=== PATIENT | female | born 1985 | race Caucasian/White ===

== ENCOUNTER 2017-06-30 09:48 | Emergency (ER) | payer SELFPAY ==
--- NOTE | 2017-06-30 10:24 | EDM.PDOC ---
ED HPI GENERAL MEDICAL PROBLEM - General Chief Complaint: General Stated Complaint: oral pain Time Seen by Provider: 06/30/17 10:17 Source of Information: Reports: Patient History Limitations: Reports: No Limitations - History of Present Illness INITIAL COMMENTS - FREE TEXT/NARRATIVE: History of present illness: [31-year-old female comes in complaining of dental pain. Patient has swelling to the right lower gum and indicates that this is new but has evolved rapidly.] Review of systems: As per history of present illness and below otherwise all systems reviewed and negative. Past medical history: As per history of present illness and as reviewed below otherwise noncontributory. Surgical history: As per history of present illness and as reviewed below otherwise noncontributory. Social history: No reported history of drug or alcohol abuse. Family history: As per history of present illness and as reviewed below otherwise noncontributory. Physical exam: HEENT: Atraumatic, normocephalic, pupils reactive, negative for conjunctival pallor or scleral icterus, mucous membranes moist, throat clear, neck supple, nontender, trachea midline. Lungs: Clear to auscultation, breath sounds equal bilaterally, chest nontender. Heart: S1S2, regular, negative for clicks, rubs, or JVD. Abdomen: Soft, nondistended, nontender. Negative for masses or hepatosplenomegaly. Negative for costovertebral tenderness. Pelvis: Stable nontender. Genitourinary: Deferred. Rectal: Deferred. Extremities: Atraumatic, negative for cords or calf pain. Neurovascular unremarkable. Neuro: Awake, alert, oriented. Cranial nerves II through XII unremarkable. Cerebellum unremarkable. Motor and sensory unremarkable throughout. Exam nonfocal. Dental pain: Right lower gum line that is red swollen and tender to the touch. Erythema in the right lower jaw external swelling up towards the right eye. Diagnostics: [] Therapeutics: [Toradol 60 mg IM] Impression: [Dental pain] Plan: [Dental balls, antibiotics] Definitive disposition and diagnosis as appropriate pending reevaluation and review of above. Right Dental Pain Score (Numeric/FACES): 9 - Related Data Allergies Allergy/AdvReac Type Severity Reaction Status Date / Time ketorolac tromethamine Allergy Severe Facial Verified 06/30/17 09:52 [From Toradol] Swelling tramadol Allergy Severe Facial Verified 06/30/17 09:52 Swelling Home Meds: Home Meds Doxylamine Succinate [Unisom Sleep Aid] 25 mg PO BEDTIME PRN 09/20/14 [History] PNV95/Ferrous Fumarate/FA [ Multivitamins] 1 tab PO DAILY 09/27/14 [ History] Docusate Sodium [Colace] 100 mg PO BID PRN #0 cap 05/21/15 [Rx] Past Medical History - Past Health History Medical/Surgical History: Denies Medical/Surgical History Psychiatric History: Reports: Addiction Other Psychiatric History: 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 Other Hematologic History: Hep C positive. Social & Family History - Family History Family Medical History: Noncontributory - Tobacco Use Smoking Status *Q: Never Smoker Used Tobacco, but Quit: Yes Month Tobacco Last Used: 4 years Second Hand Smoke Exposure: No - Alcohol Use Days Per Week of Alcohol Use: 0 - Recreational Drug Use Recreational Drug Use: No Drug Use in Last 12 Months: No Recreational Drug Type: Reports: Methamphetamine ED ROS GENERAL - Review of Systems Review Of Systems: See Below (See history of present illness) ED EXAM, GENERAL - Physical Exam Exam: See Below (History of present illness) Course - Vital Signs Last Recorded V/S: Last Vital Signs Temp 36.8 C 06/30/17 09:53 Pulse 88 06/30/17 09:53 Resp 18 06/30/17 09:53 BP 113/58 L 06/30/17 09:53 Pulse Ox 97 06/30/17 09:53 Departure - Departure Time of Disposition: 10:24 Disposition: Home, Self-Care 01 Condition: Good Clinical Impression: Pain, dental - Discharge Information Referrals: PCP,None [Primary Care Provider] - Additional Instructions: The following information is given to patients seen in the emergency department who are being discharged to home. This information is to outline your options for follow-up care. We provide all patients seen in our emergency department with a follow-up referral. The need for follow-up, as well as the timing and circumstances, are variable depending upon the specifics of your emergency department visit. If you don't have a primary care physician on staff, we will provide you with a referral. We always advise you to contact your personal physician following an emergency department visit to inform them of the circumstance of the visit and for follow-up with them and/or the need for any referrals to a consulting specialist. The emergency department will also refer you to a specialist when appropriate. This referral assures that you have the opportunity for follow-up care with a specialist. All of these measure are taken in an effort to provide you with optimal care, which includes your follow-up. Under all circumstances we always encourage you to contact your private physician who remains a resource for coordinating your care. When calling for follow-up care, please make the office aware that this follow-up is from your recent emergency room visit. If for any reason you are refused follow-up, please contact the [facility] Emergency Department at and asked to speak to the emergency department charge nurse. Take medication as directed Follow-up with the dentist as discussed Return to ED as needed as discussed
[2017-06-30] MEDS ORDERED: Lidocaine 2% Viscous Solution 15 ML Cup PO ONE (10:27)
[2017-06-30] MEDS ORDERED: Benzocaine 20% Topical Spray UD MUCMEM ONE (10:27)
[2017-06-30 10:49] VITALS: BP 112/56
== END 2017-06-30 10:54 | disposition home or self-care (01) ==
LOC: MW.ED 09:48
DX: K08.89 Other specified disorders of teeth and supporting structures (principal); Z88.6 Allergy status to analgesic agent; Z88.5 Allergy status to narcotic agent
CPT/HCPCS: 99282; A9270

== ENCOUNTER 2017-09-26 20:03 | Inpatient (IN) | payer MEDICAID ==
[2017-09-26] MEDS ORDERED: Lactated Ringers 1,000 ML IV ONE ×2 (20:38→22:07)
[2017-09-26] MEDS ORDERED: Ibuprofen 800 MG Tab PO ONE (20:55)
[2017-09-26] MEDS ORDERED: Ondansetron 4 MG/2 ML SDV IVPUSH ONE (20:57)
[2017-09-26 21:23] LABS: CHLORIDE,CL 99 mmol/L (98-107); SODIUM,NA 135 mmol/L (136-145)
--- NOTE | 2017-09-26 21:43 | EDM.PDOC ---
<Sylvia Shoemaker - Last Filed: 09/26/17 22:18> ED HPI GENERAL MEDICAL PROBLEM - General Chief Complaint: General Stated Complaint: PT HAS LUMP ON RT ARM Time Seen by Provider: 09/26/17 20:10 Source of Information: Reports: Patient History Limitations: Reports: No Limitations - History of Present Illness INITIAL COMMENTS - FREE TEXT/NARRATIVE: HISTORY AND PHYSICAL: History of present illness: [Patient comes to the emergency room complaining of pain, warmth, redness to her right forearm. She states that on September 23 she developed a migraine headache. One of her friends is a nursing care partner and offered to give her a liter of IV fluids and pain medication rather than the patient going to the emergency room because she doesn't have insurance. The patient went to her friend's house and had an IV started in her right forearm. Patient states that it took multiple attempts to both hands and arms to get an IV started. She complained of a burning sensation when normal saline was being infused. States that she was given one tablet of Benadryl and oxycodone from her friend. She is also experiencing pain in her chest primarily between her breasts which is also in her back. She describes the pain as a sharp shooting pain and it is much worse with taking a deep breath. Next day she noticed some redness and hardness to the area where she had the IV which has gradually worsened over the past 4 days. She's developed fever up to 104, generalized malaise, pain in her chest with taking a breath, back pain, nausea, increased pain to her right forearm with red streaks up her arm. She has not had any vomiting, constipation or diarrhea. Is R hand dominant. Cannot remember when her last tetanus was. She denies any history of methamphetamine or IV drug use. Denies history of hepatitis C and HIV.] Review of systems: As per history of present illness and below otherwise all systems reviewed and negative. Past medical history: As per history of present illness and as reviewed below otherwise noncontributory. Surgical history: As per history of present illness and as reviewed below otherwise noncontributory. Social history: No reported history of drug or alcohol abuse. Family history: As per history of present illness and as reviewed below otherwise noncontributory. Physical exam: Gen.: Well-developed well-nourished female in no acute distres She is tearful at times, liaison exam table without difficulty.. HEENT: Atraumatic, normocephalic oral mucous membranes are dry. Throat is clear. Neck supple, and without lymphadenopathy. Lungs: Clear to auscultation, breath sounds equal bilaterally. Heart: [id number] is regular, rate is 110. Abdomen: bowel sounds are normoactive throughout. Abdomen is soft nondistended , nontender, no masses guarding or rebound. Pelvis: Stable nontender. Genitourinary: Deferred. Rectal: Deferred. Extremities: Abscess to R medial proximal forearm, with 3cm x 3cm induration. Erythematous streaking exstends to entire upper arm. Skin is warm and erythematous. Numerous scabs and bruises to both forearms and AC joints. Neurovascular unremarkable. Neuro: Awake, alert, oriented. Motor and sensory unremarkable throughout. Exam nonfocal. Diagnostics: [CBC, CMP, urinalysis, urine , lactate, d-dimer, right forearm x-ray, chest CT for PE] Therapeutics: [1 liter LR, Vancomycin 1 gram IV] Impression: [] Plan: [] Definitive disposition and diagnosis as appropriate pending reevaluation and review of above. Headache Pain Score (Numeric/FACES): 6 - Related Data Allergies Allergy/AdvReac Type Severity Reaction Status Date / Time ketorolac tromethamine Allergy Severe Facial Verified 09/26/17 20:22 [From Toradol] Swelling tramadol Allergy Severe Facial Verified 09/26/17 20:22 Swelling Home Meds: Home Meds . 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 Other Hematologic History: Hep C positive. Social & Family History - Family History Family Medical History: Noncontributory - Tobacco Use Smoking Status *Q: Never Smoker Used Tobacco, but Quit: Yes Month/Year Tobacco Last Used: 4 years Second Hand Smoke Exposure: No - Caffeine Use Caffeine Use: Reports: None - Alcohol Use Days Per Week of Alcohol Use: 0 - Recreational Drug Use Recreational Drug Use: No Drug Use in Last 12 Months: No Recreational Drug Type: Reports: Methamphetamine ED ROS GENERAL - Review of Systems Review Of Systems: ROS reveals no pertinent complaints other than HPI. ED EXAM, GENERAL - Physical Exam Exam: See Below Course - Vital Signs Last Recorded V/S: Last Vital Signs Temp 38.2 C H 09/26/17 22:58 Pulse 121 H 09/26/17 22:58 Resp 19 09/26/17 22:58 BP 99/67 09/26/17 22:58 Pulse Ox 99 09/26/17 22:58 - Orders/Labs/Meds Orders: Active Orders 24 hr Category Date Time Status Patient Status [ADT] Stat ADT 09/26/17 22:30 Active EKG Documentation Completion [RC] STAT Care 09/26/17 20:36 Active Vaccines to be Administered [RC] PER UNIT ROUTINE Care 09/26/17 22:17 Active CTA Chest W WO Contrast [Ang Chest] [CT] Stat Exams 09/26/17 21:33 Taken Forearm 2V Rt [CR] Stat Exams 09/26/17 20:50 Taken CULTURE BLOOD [BC] Stat Lab 09/26/17 20:50 Received CULTURE BLOOD [BC] Stat Lab 09/26/17 21:00 Received DRUG SCREEN, URINE [URCHEM] Stat Lab 09/26/17 20:55 Ordered HCG QUALITATIVE,URINE [URCHEM] Stat Lab 09/26/17 20:55 Ordered UA W/MICROSCOPIC [URIN] Stat Lab 09/26/17 20:38 Ordered Levofloxacin/Dextrose 5%-Water [Levaquin in D5W 500 MG/ Med 09/26/17 23:16 Ordered 100 ML] 500 mg Premix Bag 1 bag IV ONETIME Sodium Chloride 0.9% [Normal Saline] 1,000 ml Med 09/26/17 22:39 Active IV STAT Blood Culture x2 Reflex Set [OM.PC] Stat Oth 09/26/17 20:36 Ordered Medication Orders Sodium Chloride (Normal Saline) 1,000 mls @ 999 mls/hr IV STAT ONE Stop: 09/26/17 23:39 Labs: Laboratory Tests 09/26/17 09/26/17 09/26/17 Range/Units 20:38 20:50 20:50 WBC 11.58 H (4.0-11.0) K/uL RBC 4.61 (4.30-5.90) M/uL Hgb 12.9 (12.0-16.0) g/dL Hct 37.4 (36.0-46.0) % MCV 81.1 (80.0-98.0) fL MCH 28.0 (27.0-32.0) pg MCHC 34.5 (31.0-37.0) g/dL RDW Std Deviation 41.3 (28.0-62.0) fl RDW Coeff of Yue 14 (11.0-15.0) % Plt Count 171 (150-400) K/uL MPV 11.30 (7.40-12.00) fL Neut % (Auto) 82.8 H (48.0-80.0) % Lymph % (Auto) 9.2 L (16.0-40.0) % [place] % (Auto) 7.5 (0.0-15.0) % Eos % (Auto) 0.4 (0.0-7.0) % Baso % (Auto) 0.1 (0.0-1.5) % Neut # (Auto) 9.6 H (1.4-5.7) K/uL Lymph # (Auto) 1.1 (0.6-2.4) K/uL [place] # (Auto) 0.9 H (0.0-0.8) K/uL Eos # (Auto) 0.1 (0.0-0.7) K/uL Baso # (Auto) 0.0 (0.0-0.1) K/uL Nucleated RBC % 0.0 /100WBC Nucleated RBCs # 0 K/uL D-Dimer, Quantitative 2.20 H (0.0-0.52) mg/LFEU Lactate (0.20-2.00) mmol/L Sodium (136-145) mmol/L Potassium (3.5-5.1) mmol/L Chloride (98-107) mmol/L Carbon Dioxide (21.0-32.0) mmol/L BUN (7.0-18.0) mg/dL Creatinine (0.6-1.0) mg/dL Est Cr Clr Drug Dosing mL/min Estimated GFR (MDRD) ml/min Glucose (74-106) mg/dL Calcium (8.5-10.1) mg/dL Total Bilirubin (0.2-1.0) mg/dL AST (15-37) IU/L ALT (14-63) IU/L Alkaline Phosphatase (46-116) U/L Total Protein (6.4-8.2) g/dL Albumin (3.4-5.0) g/dL Globulin (2.0-3.5) g/dL Albumin/Globulin Ratio (1.3-2.8) Urine Color YELLOW Urine Appearance SLT CLOUDY Urine pH 7.0 (5.0-8.0) Ur Specific [place] 1.020 (1.001-1.035) Urine Protein 100 (NEGATIVE) mg/dL Urine Glucose (UA) NEGATIVE (NEGATIVE) mg/dL Urine Ketones >=80 (NEGATIVE) mg/dL Urine Occult Blood SMALL H (NEGATIVE) Urine Nitrite NEGATIVE (NEGATIVE) Urine Bilirubin SMALL H (NEGATIVE) Urine Ictotest NEGATIVE Urine Urobilinogen 4.0 H (<2.0) EU/dL Ur Leukocyte Esterase NEGATIVE (NEGATIVE) Urine RBC 4-7 (0-2/HPF) Urine WBC 0-2 (0-5/HPF) Ur Epithelial Cells MANY (NONE-FEW) Urine Bacteria RARE (NEGATIVE) Urine HCG, Qual (NEGATIVE) Urine Opiates Screen (NEGATIVE) Ur Oxycodone Screen (NEGATIVE) Urine Methadone Screen (NEGATIVE) Ur Barbiturates Screen (NEGATIVE) Ur Phencyclidine Scrn (NEGATIVE) Ur Amphetamine Screen (NEGATIVE) U Methamphetamines Scrn (NEGATIVE) U Benzodiazepines Scrn (NEGATIVE) U Cocaine Metab Screen (NEGATIVE) U Marijuana (THC) Screen (NEGATIVE) 09/26/17 09/26/17 09/26/17 Range/Units 20:50 20:50 20:55 WBC (4.0-11.0) K/uL RBC (4.30-5.90) M/uL Hgb (12.0-16.0) g/dL Hct (36.0-46.0) % MCV (80.0-98.0) fL MCH (27.0-32.0) pg MCHC (31.0-37.0) g/dL RDW Std Deviation (28.0-62.0) fl RDW Coeff of Yue (11.0-15.0) % Plt Count (150-400) K/uL MPV (7.40-12.00) fL Neut % (Auto) (48.0-80.0) % Lymph % (Auto) (16.0-40.0) % [place] % (Auto) (0.0-15.0) % Eos % (Auto) (0.0-7.0) % Baso % (Auto) (0.0-1.5) % Neut # (Auto) (1.4-5.7) K/uL Lymph # (Auto) (0.6-2.4) K/uL [place] # (Auto) (0.0-0.8) K/uL Eos # (Auto) (0.0-0.7) K/uL Baso # (Auto) (0.0-0.1) K/uL Nucleated RBC % /100WBC Nucleated RBCs # K/uL D-Dimer, Quantitative (0.0-0.52) mg/LFEU Lactate 2.2 H (0.20-2.00) mmol/L Sodium 135 L (136-145) mmol/L Potassium 3.4 L (3.5-5.1) mmol/L Chloride 99 (98-107) mmol/L Carbon Dioxide 21.2 (21.0-32.0) mmol/L BUN 10 (7.0-18.0) mg/dL Creatinine 0.9 (0.6-1.0) mg/dL Est Cr Clr Drug Dosing 85.56 mL/min Estimated GFR (MDRD) > 60.0 ml/min Glucose 103 (74-106) mg/dL Calcium 8.9 (8.5-10.1) mg/dL Total Bilirubin 0.8 (0.2-1.0) mg/dL AST 44 H (15-37) IU/L ALT 79 H (14-63) IU/L Alkaline Phosphatase 153 H (46-116) U/L Total Protein 7.9 (6.4-8.2) g/dL Albumin 3.6 (3.4-5.0) g/dL Globulin 4.3 H (2.0-3.5) g/dL Albumin/Globulin Ratio 0.8 L (1.3-2.8) Urine Color Urine Appearance Urine pH (5.0-8.0) Ur Specific [place] (1.001-1.035) Urine Protein (NEGATIVE) mg/dL Urine Glucose (UA) (NEGATIVE) mg/dL Urine Ketones (NEGATIVE) mg/dL Urine Occult Blood (NEGATIVE) Urine Nitrite (NEGATIVE) Urine Bilirubin (NEGATIVE) Urine Ictotest Urine Urobilinogen (<2.0) EU/dL Ur Leukocyte Esterase (NEGATIVE) Urine RBC (0-2/HPF) Urine WBC (0-5/HPF) Ur Epithelial Cells (NONE-FEW) Urine Bacteria (NEGATIVE) Urine HCG, Qual NEGATIVE (NEGATIVE) Urine Opiates Screen (NEGATIVE) Ur Oxycodone Screen (NEGATIVE) Urine Methadone Screen (NEGATIVE) Ur Barbiturates Screen (NEGATIVE) Ur Phencyclidine Scrn (NEGATIVE) Ur Amphetamine Screen (NEGATIVE) U Methamphetamines Scrn (NEGATIVE) U Benzodiazepines Scrn (NEGATIVE) U Cocaine Metab Screen (NEGATIVE) U Marijuana (THC) Screen (NEGATIVE) 09/26/17 Range/Units 20:55 WBC (4.0-11.0) K/uL RBC (4.30-5.90) M/uL Hgb (12.0-16.0) g/dL Hct (36.0-46.0) % MCV (80.0-98.0) fL MCH (27.0-32.0) pg MCHC (31.0-37.0) g/dL RDW Std Deviation (28.0-62.0) fl RDW Coeff of Yue (11.0-15.0) % Plt Count (150-400) K/uL MPV (7.40-12.00) fL Neut % (Auto) (48.0-80.0) % Lymph % (Auto) (16.0-40.0) % [place] % (Auto) (0.0-15.0) % Eos % (Auto) (0.0-7.0) % Baso % (Auto) (0.0-1.5) % Neut # (Auto) (1.4-5.7) K/uL Lymph # (Auto) (0.6-2.4) K/uL [place] # (Auto) (0.0-0.8) K/uL Eos # (Auto) (0.0-0.7) K/uL Baso # (Auto) (0.0-0.1) K/uL Nucleated RBC % /100WBC Nucleated RBCs # K/uL D-Dimer, Quantitative (0.0-0.52) mg/LFEU Lactate (0.20-2.00) mmol/L Sodium (136-145) mmol/L Potassium (3.5-5.1) mmol/L Chloride (98-107) mmol/L Carbon Dioxide (21.0-32.0) mmol/L BUN (7.0-18.0) mg/dL Creatinine (0.6-1.0) mg/dL Est Cr Clr Drug Dosing mL/min Estimated GFR (MDRD) ml/min Glucose (74-106) mg/dL Calcium (8.5-10.1) mg/dL Total Bilirubin (0.2-1.0) mg/dL AST (15-37) IU/L ALT (14-63) IU/L Alkaline Phosphatase (46-116) U/L Total Protein (6.4-8.2) g/dL Albumin (3.4-5.0) g/dL Globulin (2.0-3.5) g/dL Albumin/Globulin Ratio (1.3-2.8) Urine Color Urine Appearance Urine pH (5.0-8.0) Ur Specific [place] (1.001-1.035) Urine Protein (NEGATIVE) mg/dL Urine Glucose (UA) (NEGATIVE) mg/dL Urine Ketones (NEGATIVE) mg/dL Urine Occult Blood (NEGATIVE) Urine Nitrite (NEGATIVE) Urine Bilirubin (NEGATIVE) Urine Ictotest Urine Urobilinogen (<2.0) EU/dL Ur Leukocyte Esterase (NEGATIVE) Urine RBC (0-2/HPF) Urine WBC (0-5/HPF) Ur Epithelial Cells (NONE-FEW) Urine Bacteria (NEGATIVE) Urine HCG, Qual (NEGATIVE) Urine Opiates Screen POSITIVE (NEGATIVE) Ur Oxycodone Screen POSITIVE (NEGATIVE) Urine Methadone Screen NEGATIVE (NEGATIVE) Ur Barbiturates Screen NEGATIVE (NEGATIVE) Ur Phencyclidine Scrn NEGATIVE (NEGATIVE) Ur Amphetamine Screen NEGATIVE (NEGATIVE) U Methamphetamines Scrn NEGATIVE (NEGATIVE) U Benzodiazepines Scrn NEGATIVE (NEGATIVE) U Cocaine Metab Screen NEGATIVE (NEGATIVE) U Marijuana (THC) Screen NEGATIVE (NEGATIVE) Meds: Medications Generic Name Dose Route Start Last Admin Trade Name Freq PRN Reason Stop Dose Admin Sodium Chloride 1,000 mls @ 999 mls/hr 09/26/17 22:39 Normal Saline IV 09/26/17 23:39 STAT ONE Discontinued Medications Generic Name Dose Route Start Last Admin Trade Name Freq PRN Reason Stop Dose Admin Diphtheria/Tetanus/Acell Pertussis 0.5 ml 09/26/17 22:17 09/26/17 22:53 Adacel IM 09/26/17 22:18 0.5 ml .ONCE ONE Administration Lactated Ringer's 1,000 mls @ 999 mls/hr 09/26/17 20:38 09/26/17 21:05 Ringers, Lactated IV 09/26/17 21:38 999 mls/hr .BOLUS ONE Administration Vancomycin HCl 1 gm/ Sodium 250 mls @ 250 mls/hr 09/26/17 20:55 09/26/17 21: 06 Chloride IV 09/26/17 21:54 250 mls/hr ONETIME ONE Administration Lactated Ringer's 1,000 mls @ 999 mls/hr 09/26/17 22:07 09/26/17 22:40 Ringers, Lactated IV 09/26/17 23:07 Not Given .BOLUS ONE Ibuprofen 800 mg 09/26/17 20:55 09/26/17 22:39 Motrin PO 09/26/17 20:56 Not Given ONETIME ONE Iopamidol 50 ml 09/26/17 22:58 09/26/17 22:59 Isovue Multipack-370 (76%) IVPUSH 09/26/17 22:59 50 ml ONETIME ONE Administration Lidocaine HCl Confirm 09/26/17 22:09 09/26/17 22:38 Xylocaine 1% Administered 09/26/17 22:10 20 ml Dose Administration 20 ml .ROUTE .STK-MED ONE Ondansetron HCl 4 mg 09/26/17 20:57 09/26/17 21:06 Zofran IVPUSH 09/26/17 20:58 4 mg ONETIME ONE Administration Departure - Departure Disposition: Admitted As Inpatient 68 Clinical Impression: Cellulitis Qualifiers: Site of cellulitis: extremity Site of cellulitis of extremity: upper extremity Laterality: right Qualified Code(s): L03.113 - Cellulitis of right upper limb Pneumonia Qualifiers: Pneumonia type: due to unspecified organism Laterality: left Lung location: lower lobe of lung Qualified Code(s): J18.1 - Lobar pneumonia, unspecified organism - Discharge Information Referrals: PCP,None [Primary Care Provider] - Forms: ED Department Discharge - My Orders Last 24 Hours: My Active Orders 09/26/17 22:17 Vaccines to be Administered [RC] PER UNIT ROUTINE 09/26/17 22:30 Patient Status [ADT] Stat 09/26/17 22:39 Sodium Chloride 0.9% [Normal Saline] 1,000 ml IV STAT 09/26/17 23:16 Levofloxacin/Dextrose 5%-Water [Levaquin in D5W 500 MG/100 ML] 500 mg Premix Bag 1 bag IV ONETIME - Assessment/Plan Last 24 Hours: My Active Orders 09/26/17 22:17 Vaccines to be Administered [RC] PER UNIT ROUTINE 09/26/17 22:30 Patient Status [ADT] Stat 09/26/17 22:39 Sodium Chloride 0.9% [Normal Saline] 1,000 ml IV STAT 09/26/17 23:16 Levofloxacin/Dextrose 5%-Water [Levaquin in D5W 500 MG/100 ML] 500 mg Premix Bag 1 bag IV ONETIME <Lisa Sears - Last Filed: 09/26/17 23:18> ED HPI GENERAL MEDICAL PROBLEM - History of Present Illness INITIAL COMMENTS - FREE TEXT/NARRATIVE: This is Dr. Sears dictating an addendum note as I assumed care of this case at 2200 hrs. I personally seen and evaluated the patient and agree with history and physical as above. The patient has been febrile and was tachycardic on arrival. The nurse practitioner was discussing the plan with the patient prior to her departure and the patient now offers that the nursing care partner/friend actually did inject Benadryl and oxycodone 5 mg into the IV with this event. Patient is not up-to-date on tetanus shot and I will give her one. The patient was a difficult IV start and anesthesia is here currently getting the IV so that we can give her her medications and do the CTA. The patient is currently comfortable on my evaluation and her arm is as described above. There is a small open scab-like wound on the volar surface of the proximal forearm on the right and there is diffuse induration without any gross demarcation or fluctuance. The erythema extends upward on the upper arm but no gross axillary adenopathy is appreciated by me. Distally neurovascular is intact. All labs have been reviewed by me as has the x-ray of the forearm. The patient is aware that the plan will be for admission for IV antibiotics and further care once the CTA has been obtained. As noted above the patient states that she does not have any history of drug use and does not have any history of hep C. She has been advised to follow-up with medical records to discuss this information in her medical record. Dr. Perez has also been made aware of this. Case was discussed with Dr. Perez at 22:28 PM and he accepts the patient for inpatient admission. 2315: I rediscussed this case with Dr. Perez after CTA of the chest results were obtained. The patient does not have a PE but she does have airspace changes in the left upper and left lower lobe consistent with a pneumonia. He would like me to add a dose of Levaquin. Patient was made aware of these test results Impression: Diffuse right arm cellulitis/sepsis secondary to inappropriate IV injection of medications, left pneumonia ED ROS GENERAL - Review of Systems Review Of Systems: ROS reveals no pertinent complaints other than HPI. Departure - Departure Time of Disposition: 23:18 Condition: Good
[2017-09-26] MEDS ORDERED: Lidocaine 1% 20 ML MDV ONE (22:09)
[2017-09-26] MEDS ORDERED: Diphtheria,Pertussis(Acell),Tetanus Vaccine 0.5 ML Syringe IM ONE (22:17)
--- NOTE | 2017-09-26 22:30 | PCM.PRNOTE ---
- Free Text/Narrative Note: called to start IV after multiple attempts. 1% lidocaine SQ. Lt antecubital vein easily found with ultrasound. #20 1.8 inch catheter easily placed with good blood return. no complications noted
[2017-09-26] MEDS ORDERED: Sodium Chloride 0.9% 1,000 ML IV ONE (22:39)
[2017-09-26] MEDS ORDERED: Iopamidol 755 MG/ML 200 ML Multipack Bottle IVPUSH ONE (22:58)
[2017-09-26] MEDS ORDERED: Levofloxacin/Dextrose 5%-Water 500 MG in Premix Bag 1 BAG IV ONE (23:16)
[2017-09-26] MEDS ORDERED: Morphine 10 MG/ML Syringe IVPUSH ONE (23:26)
[2017-09-26] MEDS ORDERED: Acetaminophen 500 MG Tab PO ONE (23:26)
[2017-09-27] MEDS: Sodium Chloride 0.9% 1,000 ML IV SCH ×3 (01:01→21:08)
[2017-09-27] MEDS: Acetaminophen 325 MG Tab PO PRN ×2 (01:02→08:20)
[2017-09-27 03:26] LABS: CHLORIDE,CL 105 mmol/L (98-107); SODIUM,NA 136 mmol/L (136-145)
--- NOTE | 2017-09-27 09:52 | PCM.HP ---
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 Multiple attempts were tried which resulted in a bacterial infection causing significant cellulitis of her right upper extremity. Patient also developed chest pain that radiated to the back that was pleuritic in nature along with febrile episode. Patient was assessed in the ER and a CT angiogram was done due to a elevated d-dimer that was initially taken which did not show any signs of PE however did show a pneumonia within the respirator system. Patient was given vancomycin for cellulitis coverage as well as Levaquin for the pneumonia infection. Patient was placed on pain medications IV fluids and was subsequently admitted to the floor. Patient denies any IV drug use, she was positive for opioids and her urine drug screen but no other illicit drugs. Patient did have an elevated leukocytosis on initial evaluation as well as an elevated lactic acid level initially on admission which was decreased after recheck. Blood cultures were also obtained for this patient. Headache Pain Score (Numeric/FACES): 6 Left Upper Back Pain Score (Numeric/FACES): 6 - Related Data Allergies/Adverse Reactions: Allergies Allergy/AdvReac Type Severity Reaction Status Date / Time ketorolac tromethamine Allergy Severe Facial Verified 09/26/17 20:22 [From Toradol] Swelling tramadol Allergy Severe Facial Verified 09/26/17 20:22 Swelling Home Medications: Home Meds . 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 Other Hematologic History: Hep C positive. Social & Family History - Family History Family Medical History: Noncontributory - Tobacco Use Smoking Status *Q: Never Smoker Used Tobacco, but Quit: Yes Month/Year Tobacco Last Used: 4 years Second Hand Smoke Exposure: No - Caffeine Use Caffeine Use: Reports: Soda, Tea - Alcohol Use Days Per Week of Alcohol Use: 0 - Recreational Drug Use Recreational Drug Use: No Drug Use in Last 12 Months: No Recreational Drug Type: Reports: Methamphetamine H&P Review of Systems - Review of Systems: Review Of Systems: ROS reveals no pertinent complaints other than HPI. Exam - Exam Exam: See Below - Vital Signs Vital Signs: Last Vital Signs Temp 36.1 C 09/27/17 07:44 Pulse 89 09/27/17 07:44 Resp 20 09/27/17 07:44 BP 101/61 09/27/17 07:44 Pulse Ox 100 09/27/17 07:44 Weight: 72.8 kg - Exam General: Alert, Oriented, Cooperative, Moderate Distress Neck: Supple Lungs: Normal Respiratory Effort, Decreased Breath Sounds Cardiovascular: Regular Rate, Regular Rhythm GI/Abdominal Exam: Normal Bowel Sounds Extremities: Other (Right arm cellulitis, demarcations made in the ER appeared to have improved, patient started having pain on extension of the forearm.) - Patient Data Lab Results Last 24 hrs: Laboratory Results - last 24 hr 09/26/17 09/26/17 09/26/17 Range/Units 20:38 20:50 20:50 WBC 11.58 H (4.0-11.0) K/uL RBC 4.61 (4.30-5.90) M/uL Hgb 12.9 (12.0-16.0) g/dL Hct 37.4 (36.0-46.0) % MCV 81.1 (80.0-98.0) fL MCH 28.0 (27.0-32.0) pg MCHC 34.5 (31.0-37.0) g/dL RDW Std Deviation 41.3 (28.0-62.0) fl RDW Coeff of Yue 14 (11.0-15.0) % Plt Count 171 (150-400) K/uL MPV 11.30 (7.40-12.00) fL Neut % (Auto) 82.8 H (48.0-80.0) % Lymph % (Auto) 9.2 L (16.0-40.0) % Weston % (Auto) 7.5 (0.0-15.0) % Eos % (Auto) 0.4 (0.0-7.0) % Baso % (Auto) 0.1 (0.0-1.5) % Neut # (Auto) 9.6 H (1.4-5.7) K/uL Lymph # (Auto) 1.1 (0.6-2.4) K/uL Weston # (Auto) 0.9 H (0.0-0.8) K/uL Eos # (Auto) 0.1 (0.0-0.7) K/uL Baso # (Auto) 0.0 (0.0-0.1) K/uL Add Manual Diff Neutrophils % (Manual) (48.0-80.0) % Band Neutrophils % % Lymphocytes % (Manual) (16.0-40.0) % Monocytes % (Manual) (0.0-15.0) % Eosinophils % (Manual) (0.0-7.0) % Nucleated RBC % 0.0 /100WBC Absolute Seg Neuts (1.4-5.7) Band Neutrophils # Lymphocytes # (Manual) (0.6-2.4) Monocytes # (Manual) (0.0-0.8) Eosinophils # (Manual) (0.0-0.7) Nucleated RBCs # 0 K/uL D-Dimer, Quantitative 2.20 H (0.0-0.52) mg/LFEU Lactate (0.20-2.00) mmol/L Sodium (136-145) mmol/L Potassium (3.5-5.1) mmol/L Chloride (98-107) mmol/L Carbon Dioxide (21.0-32.0) mmol/L BUN (7.0-18.0) mg/dL Creatinine (0.6-1.0) mg/dL Est Cr Clr Drug Dosing mL/min Estimated GFR (MDRD) ml/min Glucose (74-106) mg/dL Calcium (8.5-10.1) mg/dL Total Bilirubin (0.2-1.0) mg/dL AST (15-37) IU/L ALT (14-63) IU/L Alkaline Phosphatase (46-116) U/L Total Protein (6.4-8.2) g/dL Albumin (3.4-5.0) g/dL Globulin (2.0-3.5) g/dL Albumin/Globulin Ratio (1.3-2.8) Urine Color YELLOW Urine Appearance SLT CLOUDY Urine pH 7.0 (5.0-8.0) Ur Specific Tamms 1.020 (1.001-1.035) Urine Protein 100 (NEGATIVE) mg/dL Urine Glucose (UA) NEGATIVE (NEGATIVE) mg/dL Urine Ketones >=80 (NEGATIVE) mg/dL Urine Occult Blood SMALL H (NEGATIVE) Urine Nitrite NEGATIVE (NEGATIVE) Urine Bilirubin SMALL H (NEGATIVE) Urine Ictotest NEGATIVE Urine Urobilinogen 4.0 H (<2.0) EU/dL Ur Leukocyte Esterase NEGATIVE (NEGATIVE) Urine RBC 4-7 (0-2/HPF) Urine WBC 0-2 (0-5/HPF) Ur Epithelial Cells MANY (NONE-FEW) Urine Bacteria RARE (NEGATIVE) Urine HCG, Qual (NEGATIVE) Urine Opiates Screen (NEGATIVE) Ur Oxycodone Screen (NEGATIVE) Urine Methadone Screen (NEGATIVE) Ur Barbiturates Screen (NEGATIVE) Ur Phencyclidine Scrn (NEGATIVE) Ur Amphetamine Screen (NEGATIVE) U Methamphetamines Scrn (NEGATIVE) U Benzodiazepines Scrn (NEGATIVE) U Cocaine Metab Screen (NEGATIVE) U Marijuana (THC) Screen (NEGATIVE) 09/26/17 09/26/17 09/26/17 Range/Units 20:50 20:50 20:55 WBC (4.0-11.0) K/uL RBC (4.30-5.90) M/uL Hgb (12.0-16.0) g/dL Hct (36.0-46.0) % MCV (80.0-98.0) fL MCH (27.0-32.0) pg MCHC (31.0-37.0) g/dL RDW Std Deviation (28.0-62.0) fl RDW Coeff of Yue (11.0-15.0) % Plt Count (150-400) K/uL MPV (7.40-12.00) fL Neut % (Auto) (48.0-80.0) % Lymph % (Auto) (16.0-40.0) % Weston % (Auto) (0.0-15.0) % Eos % (Auto) (0.0-7.0) % Baso % (Auto) (0.0-1.5) % Neut # (Auto) (1.4-5.7) K/uL Lymph # (Auto) (0.6-2.4) K/uL Weston # (Auto) (0.0-0.8) K/uL Eos # (Auto) (0.0-0.7) K/uL Baso # (Auto) (0.0-0.1) K/uL Add Manual Diff Neutrophils % (Manual) (48.0-80.0) % Band Neutrophils % % Lymphocytes % (Manual) (16.0-40.0) % Monocytes % (Manual) (0.0-15.0) % Eosinophils % (Manual) (0.0-7.0) % Nucleated RBC % /100WBC Absolute Seg Neuts (1.4-5.7) Band Neutrophils # Lymphocytes # (Manual) (0.6-2.4) Monocytes # (Manual) (0.0-0.8) Eosinophils # (Manual) (0.0-0.7) Nucleated RBCs # K/uL D-Dimer, Quantitative (0.0-0.52) mg/LFEU Lactate 2.2 H (0.20-2.00) mmol/L Sodium 135 L (136-145) mmol/L Potassium 3.4 L (3.5-5.1) mmol/L Chloride 99 (98-107) mmol/L Carbon Dioxide 21.2 (21.0-32.0) mmol/L BUN 10 (7.0-18.0) mg/dL Creatinine 0.9 (0.6-1.0) mg/dL Est Cr Clr Drug Dosing 85.56 mL/min Estimated GFR (MDRD) > 60.0 ml/min Glucose 103 (74-106) mg/dL Calcium 8.9 (8.5-10.1) mg/dL Total Bilirubin 0.8 (0.2-1.0) mg/dL AST 44 H (15-37) IU/L ALT 79 H (14-63) IU/L Alkaline Phosphatase 153 H (46-116) U/L Total Protein 7.9 (6.4-8.2) g/dL Albumin 3.6 (3.4-5.0) g/dL Globulin 4.3 H (2.0-3.5) g/dL Albumin/Globulin Ratio 0.8 L (1.3-2.8) Urine Color Urine Appearance Urine pH (5.0-8.0) Ur Specific Tamms (1.001-1.035) Urine Protein (NEGATIVE) mg/dL Urine Glucose (UA) (NEGATIVE) mg/dL Urine Ketones (NEGATIVE) mg/dL Urine Occult Blood (NEGATIVE) Urine Nitrite (NEGATIVE) Urine Bilirubin (NEGATIVE) Urine Ictotest Urine Urobilinogen (<2.0) EU/dL Ur Leukocyte Esterase (NEGATIVE) Urine RBC (0-2/HPF) Urine WBC (0-5/HPF) Ur Epithelial Cells (NONE-FEW) Urine Bacteria (NEGATIVE) Urine HCG, Qual NEGATIVE (NEGATIVE) Urine Opiates Screen (NEGATIVE) Ur Oxycodone Screen (NEGATIVE) Urine Methadone Screen (NEGATIVE) Ur Barbiturates Screen (NEGATIVE) Ur Phencyclidine Scrn (NEGATIVE) Ur Amphetamine Screen (NEGATIVE) U Methamphetamines Scrn (NEGATIVE) U Benzodiazepines Scrn (NEGATIVE) U Cocaine Metab Screen (NEGATIVE) U Marijuana (THC) Screen (NEGATIVE) 09/26/17 09/27/17 09/27/17 Range/Units 20:55 02:55 02:55 WBC 9.86 (4.0-11.0) K/uL RBC 3.76 L (4.30-5.90) M/uL Hgb 10.5 L (12.0-16.0) g/dL Hct 30.6 L (36.0-46.0) % MCV 81.4 (80.0-98.0) fL MCH 27.9 (27.0-32.0) pg MCHC 34.3 (31.0-37.0) g/dL RDW Std Deviation 41.9 (28.0-62.0) fl RDW Coeff of Yue 14 (11.0-15.0) % Plt Count 161 (150-400) K/uL MPV 11.10 (7.40-12.00) fL Neut % (Auto) (48.0-80.0) % Lymph % (Auto) (16.0-40.0) % Weston % (Auto) (0.0-15.0) % Eos % (Auto) (0.0-7.0) % Baso % (Auto) (0.0-1.5) % Neut # (Auto) (1.4-5.7) K/uL Lymph # (Auto) (0.6-2.4) K/uL Weston # (Auto) (0.0-0.8) K/uL Eos # (Auto) (0.0-0.7) K/uL Baso # (Auto) (0.0-0.1) K/uL Add Manual Diff YES Neutrophils % (Manual) 79 (48.0-80.0) % Band Neutrophils % 10 % Lymphocytes % (Manual) 4 L (16.0-40.0) % Monocytes % (Manual) 6 (0.0-15.0) % Eosinophils % (Manual) 1 (0.0-7.0) % Nucleated RBC % 0.0 /100WBC Absolute Seg Neuts 7.8 H (1.4-5.7) Band Neutrophils # 1.0 Lymphocytes # (Manual) 0.4 L (0.6-2.4) Monocytes # (Manual) 0.6 (0.0-0.8) Eosinophils # (Manual) 0.1 (0.0-0.7) Nucleated RBCs # 0 K/uL D-Dimer, Quantitative (0.0-0.52) mg/LFEU Lactate (0.20-2.00) mmol/L Sodium 136 (136-145) mmol/L Potassium 3.5 (3.5-5.1) mmol/L Chloride 105 (98-107) mmol/L Carbon Dioxide 20.7 L (21.0-32.0) mmol/L BUN 8 (7.0-18.0) mg/dL Creatinine 0.7 (0.6-1.0) mg/dL Est Cr Clr Drug Dosing 110.61 mL/min Estimated GFR (MDRD) > 60.0 ml/min Glucose 88 (74-106) mg/dL Calcium 7.9 L (8.5-10.1) mg/dL Total Bilirubin (0.2-1.0) mg/dL AST (15-37) IU/L ALT (14-63) IU/L Alkaline Phosphatase (46-116) U/L Total Protein (6.4-8.2) g/dL Albumin (3.4-5.0) g/dL Globulin (2.0-3.5) g/dL Albumin/Globulin Ratio (1.3-2.8) Urine Color Urine Appearance Urine pH (5.0-8.0) Ur Specific Tamms (1.001-1.035) Urine Protein (NEGATIVE) mg/dL Urine Glucose (UA) (NEGATIVE) mg/dL Urine Ketones (NEGATIVE) mg/dL Urine Occult Blood (NEGATIVE) Urine Nitrite (NEGATIVE) Urine Bilirubin (NEGATIVE) Urine Ictotest Urine Urobilinogen (<2.0) EU/dL Ur Leukocyte Esterase (NEGATIVE) Urine RBC (0-2/HPF) Urine WBC (0-5/HPF) Ur Epithelial Cells (NONE-FEW) Urine Bacteria (NEGATIVE) Urine HCG, Qual (NEGATIVE) Urine Opiates Screen POSITIVE (NEGATIVE) Ur Oxycodone Screen POSITIVE (NEGATIVE) Urine Methadone Screen NEGATIVE (NEGATIVE) Ur Barbiturates Screen NEGATIVE (NEGATIVE) Ur Phencyclidine Scrn NEGATIVE (NEGATIVE) Ur Amphetamine Screen NEGATIVE (NEGATIVE) U Methamphetamines Scrn NEGATIVE (NEGATIVE) U Benzodiazepines Scrn NEGATIVE (NEGATIVE) U Cocaine Metab Screen NEGATIVE (NEGATIVE) U Marijuana (THC) Screen NEGATIVE (NEGATIVE) 09/27/17 Range/Units 02:55 WBC (4.0-11.0) K/uL RBC (4.30-5.90) M/uL Hgb (12.0-16.0) g/dL Hct (36.0-46.0) % MCV (80.0-98.0) fL MCH (27.0-32.0) pg MCHC (31.0-37.0) g/dL RDW Std Deviation (28.0-62.0) fl RDW Coeff of Yue (11.0-15.0) % Plt Count (150-400) K/uL MPV (7.40-12.00) fL Neut % (Auto) (48.0-80.0) % Lymph % (Auto) (16.0-40.0) % Weston % (Auto) (0.0-15.0) % Eos % (Auto) (0.0-7.0) % Baso % (Auto) (0.0-1.5) % Neut # (Auto) (1.4-5.7) K/uL Lymph # (Auto) (0.6-2.4) K/uL Weston # (Auto) (0.0-0.8) K/uL Eos # (Auto) (0.0-0.7) K/uL Baso # (Auto) (0.0-0.1) K/uL Add Manual Diff Neutrophils % (Manual) (48.0-80.0) % Band Neutrophils % % Lymphocytes % (Manual) (16.0-40.0) % Monocytes % (Manual) (0.0-15.0) % Eosinophils % (Manual) (0.0-7.0) % Nucleated RBC % /100WBC Absolute Seg Neuts (1.4-5.7) Band Neutrophils # Lymphocytes # (Manual) (0.6-2.4) Monocytes # (Manual) (0.0-0.8) Eosinophils # (Manual) (0.0-0.7) Nucleated RBCs # K/uL D-Dimer, Quantitative (0.0-0.52) mg/LFEU Lactate 0.5 (0.20-2.00) mmol/L Sodium (136-145) mmol/L Potassium (3.5-5.1) mmol/L Chloride (98-107) mmol/L Carbon Dioxide (21.0-32.0) mmol/L BUN (7.0-18.0) mg/dL Creatinine (0.6-1.0) mg/dL Est Cr Clr Drug Dosing mL/min Estimated GFR (MDRD) ml/min Glucose (74-106) mg/dL Calcium (8.5-10.1) mg/dL Total Bilirubin (0.2-1.0) mg/dL AST (15-37) IU/L ALT (14-63) IU/L Alkaline Phosphatase (46-116) U/L Total Protein (6.4-8.2) g/dL Albumin (3.4-5.0) g/dL Globulin (2.0-3.5) g/dL Albumin/Globulin Ratio (1.3-2.8) Urine Color Urine Appearance Urine pH (5.0-8.0) Ur Specific Tamms (1.001-1.035) Urine Protein (NEGATIVE) mg/dL Urine Glucose (UA) (NEGATIVE) mg/dL Urine Ketones (NEGATIVE) mg/dL Urine Occult Blood (NEGATIVE) Urine Nitrite (NEGATIVE) Urine Bilirubin (NEGATIVE) Urine Ictotest Urine Urobilinogen (<2.0) EU/dL Ur Leukocyte Esterase (NEGATIVE) Urine RBC (0-2/HPF) Urine WBC (0-5/HPF) Ur Epithelial Cells (NONE-FEW) Urine Bacteria (NEGATIVE) Urine HCG, Qual (NEGATIVE) Urine Opiates Screen (NEGATIVE) Ur Oxycodone Screen (NEGATIVE) Urine Methadone Screen (NEGATIVE) Ur Barbiturates Screen (NEGATIVE) Ur Phencyclidine Scrn (NEGATIVE) Ur Amphetamine Screen (NEGATIVE) U Methamphetamines Scrn (NEGATIVE) U Benzodiazepines Scrn (NEGATIVE) U Cocaine Metab Screen (NEGATIVE) U Marijuana (THC) Screen (NEGATIVE) Result Diagrams: 09/27/17 02:55 09/27/17 02:55 Problem List Initiated/Reviewed/Updated: Yes Orders Last 24hrs: Active Orders 24 hr Category Date Time Status Patient Status [ADT] Stat ADT 09/26/17 23:27 Active Cardiac Monitoring [RC] Q8H Care 09/26/17 23:27 Active Telemetry Monitoring [Cardiac Monitoring] [RC] . Care 09/26/17 23:40 Active DIRECTED Regular Diet [DIET] Diet 09/27/17 Breakfast Active CTA Chest W WO Contrast [Ang Chest] [CT] Stat Exams 09/26/17 21:33 Taken Forearm 2V Rt [CR] Stat Exams 09/26/17 20:50 Taken CULTURE BLOOD [BC] Stat Lab 09/26/17 20:50 Received CULTURE BLOOD [BC] Stat Lab 09/26/17 21:00 Received CULTURE SPUTUM + SMEAR [RM] Routine Lab 09/27/17 09:47 Ordered DRUG SCREEN, URINE [URCHEM] Stat Lab 09/26/17 20:55 Ordered HCG QUALITATIVE,URINE [URCHEM] Stat Lab 09/26/17 20:55 Ordered UA W/MICROSCOPIC [URIN] Stat Lab 09/26/17 20:38 Ordered VANCOMYCIN TROUGH [CHEM] Timed Lab 09/28/17 04:00 Ordered Acetaminophen [Tylenol] Med 09/27/17 00:40 Active 650 mg PO Q4H PRN Ondansetron [Zofran] Med 09/27/17 00:40 Active 4 mg IVPUSH Q4H PRN Sodium Chloride 0.9% [Normal Saline] 1,000 ml Med 09/27/17 00:45 Active IV ASDIRECTED Vancomycin Pharmacy to Dose [Pharmacy to Dose - Med 09/27/17 00:45 Active Vancomycin] 1 dose .XX ASDIRECTED Vancomycin [Vancocin] 1 gm Med 09/27/17 05:00 Active Sodium Chloride 0.9% [Normal Saline] 250 ml IV Q8H Blood Culture x2 Reflex Set [OM.PC] Stat Oth 09/26/17 20:36 Ordered Medication Orders Acetaminophen (Tylenol) 650 mg PO Q4H PRN PRN Reason: Pain Last Admin: 09/27/17 08:20 Dose: 650 mg Admin: 09/27/17 01:02 Dose: 650 mg Sodium Chloride (Normal Saline) 1,000 mls @ 125 mls/hr IV ASDIRECTED DIOR Last Admin: 09/27/17 01:01 Dose: 125 mls/hr Vancomycin HCl 1 gm/ Sodium (Chloride) 250 mls @ 166 mls/hr IV Q8H [facility] Last Infusion: 09/27/17 07:05 Dose: 166 mls/hr Admin: 09/27/17 05:32 Dose: 166 mls/hr Ondansetron HCl (Zofran) 4 mg IVPUSH Q4H PRN PRN Reason: Nausea/Vomiting Vancomycin HCl (Pharmacy To Dose - Vancomycin) 1 dose .XX ASDIRECTED [facility] Assessment/Plan Comment:: 32-year-old female presenting with right arm pain, fever, pleuritic chest pain secondary to right arm cellulitis along with likely community acquired pneumonia. #1. Tenderness, erythema of the right arm, decreased range of motion secondary to right arm cellulitis -Vancomycin for MRSA coverage for cellulitis infection, cultures on admission to ER, repeat blood cultures pain medication on board for alleviation of pain. #2. Pneumonia likely community-acquired in nature -CT angiogram ruled out any signs of PE, both CT angios as well as chest x-ray do indicate pneumonia infection, most likely etiology is community-acquired pneumonia for which the patient is presently on IV Levaquin. Anticipated length of stay is likely greater than 2 midnights
[2017-09-27] MEDS ORDERED: Ibuprofen 800 MG Tab PO ONE (09:53)
[2017-09-27] MEDS ORDERED: Levofloxacin/Dextrose 5%-Water 750 MG in Premix Bag 1 BAG IV SCH ×2 (10:00→12:15)
--- NOTE | 2017-09-27 10:25 | CR ---
EXAM DATE: 09/26/17 PATIENT'S AGE: 32 Patient: CINDY FERRIS Facility: [place], [place] Site . Site : 1985 Study: XRay Extremity Right forearm [id number]/[id number] 9:31:38 PM Ordering Physician: Doctor Franz Final Report: INDICATION: Abscess in the right forearm TECHNIQUE: Two views right forearm COMPARISON: None FINDINGS: Bones: Alignment is normal. No fractures or bone lesions. Joint spaces: Unremarkable. Soft tissues: Soft tissue edema anterior to the forearm and along the ulnar aspect. IMPRESSION: Soft tissue edema anterior to the forearm and along the ulnar aspect. No gross osseous abnormalities. Dictated by Tano Dao MD @ 09/26/2017 9:39:34 PM Dictated by: Tano Dao MD @ 09/26/2017 21:39:46 (Electronic Signature) Report Signed by Proxy. LINCOLN
--- NOTE | 2017-09-27 10:26 | CT ---
EXAM DATE: 09/26/17 PATIENT'S AGE: 32 Patient: CINDY FERRIS Facility: [place], [place] Site . Site : 1985 Study: CT Chest Angio [id number] 10:52:50 PM Ordering Physician: Doctor Franz Final Report: INDICATION: Elevated D-dimer, chest pain TECHNIQUE: CT chest pulmonary angiogram acquired with IV contrast. COMPARISON: None FINDINGS: Cardiovascular structures: Normal vascular enhancement of the pulmonary arteries , no sign of pulmonary embolism. Heart size is normal. No sign of aneurysm or dissection in the thoracic aorta. Mediastinum and adiel: Aortopulmonary window adenopathy. Lungs left upper and left lower lobe airspace opacities consistent with pneumonia. Pleura and pericardium: No effusions. Chest wall and axilla: No mass or adenopathy. Bones: No significant findings. Upper abdomen: Unremarkable. IMPRESSION: No evidence for pulmonary embolus. Left upper and left lower lobe airspace opacities consistent with pneumonia. Aortopulmonary window adenopathy. Dictated by Tano Dao MD @ 09/26/2017 11:04:20 PM Dictated by: Tano Dao MD @ 09/26/2017 23:04:31 (Electronic Signature) Report Signed by Proxy. LINCOLN
--- NOTE | 2017-09-27 11:44 | CR ---
EXAMINATION: Portable chest radiograph. HISTORY: Pneumonia. FINDINGS: The trachea is midline. The cardiomediastinal silhouette is within normal limits. Left basilar infilt rate noted. No definite pleural pleural effusion or pneumothorax. Osseous structures appear unremarkable. IMPRESSION: Left basilar infiltrate noted, likely representing pneumonia.
[2017-09-27] MEDS: oxyCODONE 5 MG Tab PO PRN ×2 (11:45→18:13)
[2017-09-27] MEDS: Ondansetron 4 MG/2 ML SDV IVPUSH PRN (18:11)
[2017-09-27] MEDS ORDERED: HYDROmorphone 2 MG/ML Syringe IVPUSH PRN (22:49)
[2017-09-28] MEDS: Piperacillin/Tazobactam 4.5 GM in Sodium Chloride 0.9% 100 ML IV SCH ×5 (00:33→23:41)
[2017-09-28] MEDS: Ondansetron 4 MG/2 ML SDV IVPUSH PRN (00:34)
[2017-09-28] MEDS: oxyCODONE 5 MG Tab PO PRN ×3 (00:35→14:19)
[2017-09-28 04:15] LABS: CHLORIDE,CL 106 mmol/L (98-107); SODIUM,NA 137 mmol/L (136-145)
--- NOTE | 2017-09-28 08:41 | PCM.PN ---
- General Info Date of Service: 09/28/17 Subjective Update: Patient was assessed in the a.m., her right arm seem to have an area of fluctuance and there was tenderness, the suspicion seems to more of an abscess and less likely to be compartment syndrome, however the patient has gotten an ultrasound to assess the etiology further. Patient did have an acutely worsening chest pain pleuritic in nature overnight, patient had IV Zosyn added as a result of the pain and an elevated temperature that was seen. - Review of Systems General: Reports: Weakness, Fatigue Pulmonary: Reports: Pleuritic Chest Pain - Patient Data Vitals - Most Recent: Last Vital Signs Temp 35.7 C 09/28/17 08:00 Pulse 89 09/28/17 08:00 Resp 22 H 09/28/17 08:00 BP 100/62 09/28/17 08:00 Pulse Ox 97 09/28/17 08:00 Weight - Most Recent: 72.8 kg I&O - Last 24 Hours: Intake & Output 09/27/17 09/28/17 09/28/17 22:59 06:59 14:59 Intake Total 2735 1290 Output Total 900 2600 Balance 1835 -1310 Lab Results Last 24 Hours: Laboratory Results - last 24 hr 09/28/17 09/28/17 09/28/17 Range/Units 03:50 03:50 03:50 WBC 7.90 (4.0-11.0) K/uL RBC 3.81 L (4.30-5.90) M/uL Hgb 10.4 L (12.0-16.0) g/dL Hct 31.0 L (36.0-46.0) % MCV 81.4 (80.0-98.0) fL MCH 27.3 (27.0-32.0) pg MCHC 33.5 (31.0-37.0) g/dL RDW Std Deviation 42.0 (28.0-62.0) fl RDW Coeff of Yue 14 (11.0-15.0) % Plt Count 195 (150-400) K/uL MPV 10.60 (7.40-12.00) fL Neut % (Auto) 75.5 (48.0-80.0) % Lymph % (Auto) 15.2 L (16.0-40.0) % [place] % (Auto) 8.4 (0.0-15.0) % Eos % (Auto) 0.9 (0.0-7.0) % Baso % (Auto) 0.0 (0.0-1.5) % Neut # (Auto) 6.0 H (1.4-5.7) K/uL Lymph # (Auto) 1.2 (0.6-2.4) K/uL [place] # (Auto) 0.7 (0.0-0.8) K/uL Eos # (Auto) 0.1 (0.0-0.7) K/uL Baso # (Auto) 0.0 (0.0-0.1) K/uL Nucleated RBC % 0.0 /100WBC Nucleated RBCs # 0 K/uL Sodium 137 (136-145) mmol/L Potassium 3.2 L (3.5-5.1) mmol/L Chloride 106 (98-107) mmol/L Carbon Dioxide 20.2 L (21.0-32.0) mmol/L BUN 3 L (7.0-18.0) mg/dL Creatinine 0.7 (0.6-1.0) mg/dL Est Cr Clr Drug Dosing 110.61 mL/min Estimated GFR (MDRD) > 60.0 ml/min Glucose 92 (74-106) mg/dL Calcium 8.2 L (8.5-10.1) mg/dL Total Bilirubin 0.5 (0.2-1.0) mg/dL AST 17 (15-37) IU/L ALT 43 (14-63) IU/L Alkaline Phosphatase 100 (46-116) U/L Total Protein 6.8 (6.4-8.2) g/dL Albumin 2.7 L (3.4-5.0) g/dL Globulin 4.1 H (2.0-3.5) g/dL Albumin/Globulin Ratio 0.7 L (1.3-2.8) Vancomycin Trough 8.6 (5.0-10.0) ug/mL Randy Results Last 24 Hours: Microbiology 09/26/17 21:00 Aerobic Blood Culture - Preliminary Blood - Venous - Lab Draw NO GROWTH AFTER 1 DAY Anaerobic Blood Culture - Preliminary NO GROWTH AFTER 1 DAY 09/26/17 20:50 Aerobic Blood Culture - Preliminary Blood - Venous NO GROWTH AFTER 1 DAY Anaerobic Blood Culture - Preliminary NO GROWTH AFTER 1 DAY Med Orders - Current: Current Medications Hydromorphone HCl (Dilaudid) 1 mg IVPUSH Q2H PRN PRN Reason: Pain Sodium Chloride (Normal Saline) 1,000 mls @ 125 mls/hr IV ASDIRECTED [facility] Last Admin: 09/27/17 21:08 Dose: 125 mls/hr Vancomycin HCl 1 gm/ Sodium (Chloride) 250 mls @ 166 mls/hr IV Q8H [facility] Last Admin: 09/28/17 06:33 Dose: 166 mls/hr Levofloxacin/Dextrose 750 mg/ (Premix) 150 mls @ 100 mls/hr IV Q24H [facility] Piperacillin Sod/Tazobactam (Sod 4.5 gm/ Sodium Chloride) 100 mls @ 100 mls/hr IV Q6H [facility] Last Admin: 09/28/17 05:39 Dose: 100 mls/hr Ondansetron HCl (Zofran) 4 mg IVPUSH Q4H PRN PRN Reason: Nausea/Vomiting Last Admin: 09/28/17 00:34 Dose: 4 mg Oxycodone HCl (Oxycodone) 5 mg PO Q6H PRN PRN Reason: Pain Last Admin: 09/28/17 06:53 Dose: 5 mg Vancomycin HCl (Pharmacy To Dose - Vancomycin) 1 dose .XX ASDIRECTED [facility] Discontinued Medications Acetaminophen (Tylenol Extra Strength) 1,000 mg PO ONETIME ONE Stop: 09/26/17 23:27 Last Admin: 09/26/17 23:33 Dose: 1,000 mg Acetaminophen (Tylenol) 650 mg PO Q4H PRN PRN Reason: Pain Last Admin: 09/27/17 08:20 Dose: 650 mg Diphtheria/Tetanus/Acell Pertussis (Adacel) 0.5 ml IM .ONCE ONE Stop: 09/26/17 22:18 Last Admin: 09/26/17 22:53 Dose: 0.5 ml Lactated Ringer's (Ringers, Lactated) 1,000 mls @ 999 mls/hr IV .BOLUS ONE Stop: 09/26/17 21:38 Last Admin: 09/26/17 21:05 Dose: 999 mls/hr Vancomycin HCl 1 gm/ Sodium (Chloride) 250 mls @ 250 mls/hr IV ONETIME ONE Stop: 09/26/17 21:54 Last Admin: 09/26/17 21:06 Dose: 250 mls/hr Lactated Ringer's (Ringers, Lactated) 1,000 mls @ 999 mls/hr IV .BOLUS ONE Stop: 09/26/17 23:07 Last Admin: 09/26/17 22:40 Dose: Not Given Sodium Chloride (Normal Saline) 1,000 mls @ 999 mls/hr IV STAT ONE Stop: 09/26/17 23:39 Last Infusion: 09/27/17 00:30 Dose: Infused Levofloxacin/Dextrose 500 mg/ (Premix) 100 mls @ 100 mls/hr IV ONETIME ONE Stop: 09/27/17 00:15 Last Infusion: 09/27/17 00:25 Dose: Infused Levofloxacin/Dextrose 750 mg/ (Premix) 150 mls @ 100 mls/hr IV ONETIME [facility] Last Admin: 09/27/17 10:20 Dose: 100 mls/hr Levofloxacin/Dextrose 750 mg/ (Premix) 150 mls @ 100 mls/hr IV Q24H [facility] Last Admin: 09/27/17 15:44 Dose: Not Given Ibuprofen (Motrin) 800 mg PO ONETIME ONE Stop: 09/26/17 20:56 Last Admin: 09/26/17 22:39 Dose: Not Given Ibuprofen (Motrin) 800 mg PO ONETIME ONE Stop: 09/27/17 09:54 Last Admin: 09/27/17 12:17 Dose: Not Given Iopamidol (Isovue Multipack-370 (76%)) 50 ml IVPUSH ONETIME ONE Stop: 09/26/17 22:59 Last Admin: 09/26/17 22:59 Dose: 50 ml Lidocaine HCl (Xylocaine 1%) Confirm Administered Dose 20 ml .ROUTE .STK-MED ONE Stop: 09/26/17 22:10 Last Admin: 09/26/17 22:38 Dose: 20 ml Morphine Sulfate (Morphine) 5 mg IVPUSH ONETIME ONE Stop: 09/26/17 23:27 Last Admin: 09/26/17 23:34 Dose: 5 mg Ondansetron HCl (Zofran) 4 mg IVPUSH ONETIME ONE Stop: 09/26/17 20:58 Last Admin: 09/26/17 21:06 Dose: 4 mg - Exam Quality Assessment: Supplemental Oxygen General: Alert, Oriented, Cooperative, Mild Distress Lungs: Clear to Auscultation, Decreased Breath Sounds Cardiovascular: Regular Rate, Regular Rhythm GI/Abdominal Exam: Normal Bowel Sounds Extremities: Arm Pain, Other (The patient has swelling of her right arm around the site of insertion where the IV was placed by her friend, it is fluctuant and erythematous, patient still has good range of motion, good strength, does not appear to have compartment syndrome based on physical examination and evaluation.) - Problem List Review Problem List Initiated/Reviewed/Updated: Yes - My Orders Last 24 Hours: My Active Orders 09/27/17 09:47 CULTURE SPUTUM + SMEAR [RM] Routine 09/27/17 09:52 oxyCODONE 5 mg PO Q6H PRN 09/27/17 12:16 Resuscitation Status Routine 09/27/17 12:43 CULTURE BLOOD [BC] Stat 09/27/17 12:55 CULTURE BLOOD [BC] Stat 09/27/17 21:00 Blood Culture x2 Reflex Set [OM.PC] Stat 09/28/17 11:00 Levofloxacin/Dextrose 5%-Water [Levaquin in D5W 750 MG/150 ML] 750 mg Premix Bag 1 bag IV Q24H - Plan Plan:: 32-year-old female presenting with right arm pain, fever, pleuritic chest pain secondary to right arm cellulitis along with likely community acquired pneumonia. #1. Tenderness, erythema of the right arm, decreased range of motion secondary to right arm cellulitis -Vancomycin for MRSA coverage for cellulitis infection, cultures on admission to ER, repeat blood cultures pain medication on board for alleviation of pain. -There was increased fluctuance when seen the patient in the a.m., ultrasound of the upper extremity indicated likely a superficial thrombophlebitis, shall get CT of the extremity to get further assessment. -Both sets of blood cultures have been taken have been negative #2. Pneumonia likely community-acquired in nature -CT angiogram ruled out any signs of PE, both CT angios as well as chest x-ray do indicate pneumonia infection, most likely etiology is community-acquired pneumonia for which the patient is presently on IV Levaquin. #3. Febrile episode overnight -Due to the febrile episode that the patient had overnight along with increasing pleuritic chest pain, patient has also gotten IV Zosyn for broader spectrum coverage. #4. Hypokalemia -Patient to get IV potassium in her fluids. 40 mEq. Anticipated length of stay is likely greater than 2 midnights
[2017-09-28] MEDS: HYDROmorphone 1 MG/ML Syringe IVPUSH PRN ×4 (09:05→21:51)
[2017-09-28] MEDS ORDERED: Potassium Chloride 20 MEQ Tab.ER PO ONE (09:42)
[2017-09-28] MEDS: Levofloxacin/Dextrose 5%-Water 750 MG in Premix Bag 1 BAG IV SCH (12:43)
[2017-09-28] MEDS ORDERED: Lidocaine 1% 20 ML MDV INJECT ONE (13:15)
--- NOTE | 2017-09-28 16:07 | US ---
EXAMINATION: Right upper extremity ultrasound HISTORY: Swelling COMPARISON: None TECHNIQUE: Grayscale and color Doppler images obtained of the region of concern. FINDINGS: There is a tubular shaped hypoechoic area with adjacent edema within the region of concern in the right arm. There is no internal color Doppler flow. IMPRESSION: 1. Probable thrombophlebitis within the subcutaneous tissues of the region of concern with likely adj acent cellulitis.
[2017-09-28] MEDS: Enoxaparin 40 MG/0.4 ML Syringe SUBCUT SCH (21:39)
[2017-09-29] MEDS ORDERED: Sodium Chloride 0.9% 1,000 ML IV SCH (00:15)
[2017-09-29] MEDS: HYDROmorphone 1 MG/ML Syringe IVPUSH PRN ×4 (03:44→20:12)
[2017-09-29] MEDS: Piperacillin/Tazobactam 4.5 GM in Sodium Chloride 0.9% 100 ML IV SCH ×2 (04:17→10:09)
[2017-09-29 07:02] LABS: CHLORIDE,CL 108 mmol/L (98-107); SODIUM,NA 140 mmol/L (136-145)
[2017-09-29] MEDS: oxyCODONE 5 MG Tab PO PRN (11:21)
[2017-09-29] MEDS: Levofloxacin/Dextrose 5%-Water 750 MG in Premix Bag 1 BAG IV SCH (11:21)
[2017-09-29] MEDS: Ondansetron 4 MG/2 ML SDV IVPUSH PRN (14:07)
--- NOTE | 2017-09-29 15:03 | PCM.PN ---
- Review of Systems Systems Review Comment:: feeling better, slept well last night. - Patient Data Vitals - Most Recent: Last Vital Signs Temp 37.1 C 09/29/17 12:00 Pulse 65 09/29/17 12:00 Resp 16 09/29/17 12:00 BP 106/61 09/29/17 12:00 Pulse Ox 99 09/29/17 12:00 Weight - Most Recent: 72.8 kg I&O - Last 24 Hours: Intake & Output 09/29/17 09/29/17 09/29/17 06:59 14:59 22:59 Intake Total 1746 200 Output Total 1400 Balance 346 200 Lab Results Last 24 Hours: Laboratory Results - last 24 hr 09/29/17 09/29/17 09/29/17 Range/Units 06:06 06:06 12:25 WBC 6.19 (4.0-11.0) K/uL RBC 3.68 L (4.30-5.90) M/uL Hgb 10.1 L (12.0-16.0) g/dL Hct 29.8 L (36.0-46.0) % MCV 81.0 (80.0-98.0) fL MCH 27.4 (27.0-32.0) pg MCHC 33.9 (31.0-37.0) g/dL RDW Std Deviation 43.1 (28.0-62.0) fl RDW Coeff of Yue 15 (11.0-15.0) % Plt Count 212 (150-400) K/uL MPV 11.30 (7.40-12.00) fL Neut % (Auto) 65.9 (48.0-80.0) % Lymph % (Auto) 21.3 (16.0-40.0) % [place] % (Auto) 10.5 (0.0-15.0) % Eos % (Auto) 2.1 (0.0-7.0) % Baso % (Auto) 0.2 (0.0-1.5) % Neut # (Auto) 4.1 (1.4-5.7) K/uL Lymph # (Auto) 1.3 (0.6-2.4) K/uL [place] # (Auto) 0.7 (0.0-0.8) K/uL Eos # (Auto) 0.1 (0.0-0.7) K/uL Baso # (Auto) 0.0 (0.0-0.1) K/uL Nucleated RBC % 0.0 /100WBC Nucleated RBCs # 0 K/uL Sodium 140 (136-145) mmol/L Potassium 3.7 (3.5-5.1) mmol/L Chloride 108 H (98-107) mmol/L Carbon Dioxide 21.7 (21.0-32.0) mmol/L BUN 6 L (7.0-18.0) mg/dL Creatinine 0.7 (0.6-1.0) mg/dL Est Cr Clr Drug Dosing 110.61 mL/min Estimated GFR (MDRD) > 60.0 ml/min Glucose 77 (74-106) mg/dL Calcium 8.3 L (8.5-10.1) mg/dL Total Bilirubin 0.6 (0.2-1.0) mg/dL AST 13 L (15-37) IU/L ALT 31 (14-63) IU/L Alkaline Phosphatase 91 (46-116) U/L Total Protein 6.9 (6.4-8.2) g/dL Albumin 2.5 L (3.4-5.0) g/dL Globulin 4.4 H (2.0-3.5) g/dL Albumin/Globulin Ratio 0.6 L (1.3-2.8) Vancomycin Trough 10.7 H (5.0-10.0) ug/mL Randy Results Last 24 Hours: Microbiology 09/27/17 12:55 Aerobic Blood Culture - Preliminary Blood - Venous - Lab Draw NO GROWTH AFTER 2 DAYS Anaerobic Blood Culture - Preliminary NO GROWTH AFTER 2 DAYS 09/27/17 12:43 Aerobic Blood Culture - Preliminary Blood - Venous NO GROWTH AFTER 2 DAYS Anaerobic Blood Culture - Preliminary NO GROWTH AFTER 2 DAYS 09/26/17 21:00 Aerobic Blood Culture - Preliminary Blood - Venous - Lab Draw NO GROWTH AFTER 2 DAYS Anaerobic Blood Culture - Preliminary NO GROWTH AFTER 2 DAYS 09/26/17 20:50 Aerobic Blood Culture - Preliminary Blood - Venous NO GROWTH AFTER 2 DAYS Anaerobic Blood Culture - Preliminary NO GROWTH AFTER 2 DAYS Med Orders - Current: Current Medications Enoxaparin Sodium (Lovenox) 40 mg SUBCUT Q24H [facility] Last Admin: 09/28/17 21:39 Dose: 40 mg Hydromorphone HCl (Dilaudid) 1 mg IVPUSH Q2H PRN PRN Reason: Pain Last Admin: 09/29/17 14:15 Dose: 1 mg Vancomycin HCl 1 gm/ Sodium (Chloride) 250 mls @ 166 mls/hr IV Q8H [facility] Last Admin: 09/29/17 14:10 Dose: 166 mls/hr Levofloxacin/Dextrose 750 mg/ (Premix) 150 mls @ 100 mls/hr IV Q24H [facility] Last Admin: 09/29/17 11:21 Dose: 100 mls/hr Ondansetron HCl (Zofran) 4 mg IVPUSH Q4H PRN PRN Reason: Nausea/Vomiting Last Admin: 09/29/17 14:07 Dose: 4 mg Oxycodone HCl (Oxycodone) 5 mg PO Q6H PRN PRN Reason: Pain Last Admin: 09/29/17 11:21 Dose: 5 mg Vancomycin HCl (Pharmacy To Dose - Vancomycin) 1 dose .XX ASDIRECTED [facility] Discontinued Medications Acetaminophen (Tylenol Extra Strength) 1,000 mg PO ONETIME ONE Stop: 09/26/17 23:27 Last Admin: 09/26/17 23:33 Dose: 1,000 mg Acetaminophen (Tylenol) 650 mg PO Q4H PRN PRN Reason: Pain Last Admin: 09/27/17 08:20 Dose: 650 mg Diphtheria/Tetanus/Acell Pertussis (Adacel) 0.5 ml IM .ONCE ONE Stop: 09/26/17 22:18 Last Admin: 09/26/17 22:53 Dose: 0.5 ml Hydromorphone HCl (Dilaudid) 1 mg IVPUSH Q2H PRN PRN Reason: Pain Lactated Ringer's (Ringers, Lactated) 1,000 mls @ 999 mls/hr IV .BOLUS ONE Stop: 09/26/17 21:38 Last Admin: 09/26/17 21:05 Dose: 999 mls/hr Vancomycin HCl 1 gm/ Sodium (Chloride) 250 mls @ 250 mls/hr IV ONETIME ONE Stop: 09/26/17 21:54 Last Admin: 09/26/17 21:06 Dose: 250 mls/hr Lactated Ringer's (Ringers, Lactated) 1,000 mls @ 999 mls/hr IV .BOLUS ONE Stop: 09/26/17 23:07 Last Admin: 09/26/17 22:40 Dose: Not Given Sodium Chloride (Normal Saline) 1,000 mls @ 999 mls/hr IV STAT ONE Stop: 09/26/17 23:39 Last Infusion: 09/27/17 00:30 Dose: Infused Levofloxacin/Dextrose 500 mg/ (Premix) 100 mls @ 100 mls/hr IV ONETIME ONE Stop: 09/27/17 00:15 Last Infusion: 09/27/17 00:25 Dose: Infused Sodium Chloride (Normal Saline) 1,000 mls @ 125 mls/hr IV ASDIRECTED [facility] Last Admin: 09/27/17 21:08 Dose: 125 mls/hr Levofloxacin/Dextrose 750 mg/ (Premix) 150 mls @ 100 mls/hr IV ONETIME [facility] Last Admin: 09/27/17 10:20 Dose: 100 mls/hr Levofloxacin/Dextrose 750 mg/ (Premix) 150 mls @ 100 mls/hr IV Q24H [facility] Last Admin: 09/27/17 15:44 Dose: Not Given Piperacillin Sod/Tazobactam (Sod 4.5 gm/ Sodium Chloride) 100 mls @ 100 mls/hr IV Q6H [facility] Last Admin: 09/29/17 10:09 Dose: 100 mls/hr Potassium Chloride 40 meq/ (Sodium Chloride) 1,020 [facility]ls [facility] Admin: 09/28/17 16:17 Dose: 125 mls/hr Sodium Chloride (Normal Saline) 1,000 mls @ [facility] Last Admin: 09/29/17 06:42 Dose: 125 mls/hr Potassium Chloride 40 meq/ (Sodium Chloride) 1,020 mls @ 125 mls/hr IV ONETIME ONE Stop: 09/29/17 00:24 Last Admin: 09/28/17 16:17 Dose: 125 mls/hr Ibuprofen (Motrin) 800 mg PO ONETIME ONE Stop: 09/26/17 20:56 Last Admin: 09/26/17 22:39 Dose: Not Given Ibuprofen (Motrin) 800 mg PO ONETIME ONE Stop: 09/27/17 09:54 Last Admin: 04/05/18 12:17 Dose: Not Given Iopamidol (Isovue Multipack-370 (76%)) 50 ml IVPUSH ONETIME ONE Stop: 09/26/17 22:59 Last Admin: 09/26/17 22:59 Dose: 50 ml Lidocaine HCl (Xylocaine 1%) Confirm Administered Dose 20 ml .ROUTE .STK-MED ONE Stop: 09/26/17 22:10 Last Admin: 09/26/17 22:38 Dose: 20 ml Morphine Sulfate (Morphine) 5 mg IVPUSH ONETIME ONE Stop: 09/26/17 23:27 Last Admin: 09/26/17 23:34 Dose: 5 mg Ondansetron HCl (Zofran) 4 mg IVPUSH ONETIME ONE Stop: 09/26/17 20:58 Last Admin: 09/26/17 21:06 Dose: 4 mg Potassium Chloride (Klor-Con M20) 40 meq PO ONETIME ONE Stop: 09/28/17 09:43 Last Admin: 09/28/17 11:16 Dose: 40 meq - Exam General: Alert, Oriented Cardiovascular: Regular Rate, Regular Rhythm GI/Abdominal Exam: Soft, Non-Tender Extremities: Other (cellulitis and induration of right arm improving) Neurological: No New Focal Deficit - Problem List Review Problem List Initiated/Reviewed/Updated: Yes - My Orders Last 24 Hours: My Active Orders 09/28/17 20:00 Enoxaparin [Lovenox] 40 mg SUBCUT Q24H 09/30/17 05:11 BASIC METABOLIC PANEL,BMP [CHEM] AM CBC WITH AUTO DIFF [HEME] AM 10/01/17 05:11 BASIC METABOLIC PANEL,BMP [CHEM] AM CBC WITH AUTO DIFF [HEME] AM - Plan Plan:: 32-year-old female with right arm cellulitis, superficial thrombophlebitis from home IV injection of oral medications and pneumonia Cellulitis continue vancomycin Pneumonia: continue levaquin, cultures have been negative, will d/c zosyn.
[2017-09-29] MEDS: Enoxaparin 40 MG/0.4 ML Syringe SUBCUT SCH (20:09)
[2017-09-30] MEDS: HYDROmorphone 1 MG/ML Syringe IVPUSH PRN ×2 (03:25→10:10)
[2017-09-30 06:34] LABS: CHLORIDE,CL 105 mmol/L (98-107); SODIUM,NA 139 mmol/L (136-145)
[2017-09-30] MEDS ORDERED: Potassium Chloride 20 MEQ Tab.ER PO ONE (08:37)
--- NOTE | 2017-09-30 09:48 | PCM.DCSUM1 ---
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 Multiple attempts were tried which resulted in a bacterial infection causing significant cellulitis of her right upper extremity. Patient also developed chest pain that radiated to the back that was pleuritic in nature along with febrile episode. Patient was assessed in the ER and a CT angiogram was done due to a elevated d-dimer that was initially taken which did not show any signs of PE however did show infliltrates in the left upper and left lower lobes. Patient was treate with broad spectrum antibiotics of vancomycin, zosyn, and leveaquin. Multiple periodic blood cultures were no growth. Her fevers resolved and patient today is requesting discharge home. Ultrasound and CT of the arm was suggestive of superficial thrombophlebitis. She is discharged home on levaquin and bactrim for five more days. - Patient Instructions Diet: Usual Diet as Tolerated - Discharge Plan Prescriptions/Med Rec: Levofloxacin [Levaquin] 750 mg PO DAILY #5 tablet Sulfamethoxazole/Trimethoprim [Bactrim Ds Tablet] 1 each PO BID #10 tablet Home Medications: Home Meds Levofloxacin [Levaquin] 750 mg PO DAILY #5 tablet 09/30/17 [Rx] Sulfamethoxazole/Trimethoprim [Bactrim Ds Tablet] 1 each PO BID #10 tablet 09/30 [Rx] Patient Handouts: Cellulitis, Adult, [id number] Referrals: Michelle Rendon MD [Physician] - 10/11/17 3:15 pm - Patient Data Vitals - Most Recent: Last Vital Signs Temp 36.9 C 09/30/17 07:54 Pulse 67 09/30/17 07:54 Resp 16 09/30/17 07:54 BP 113/71 09/30/17 07:54 Pulse Ox 96 09/30/17 07:54 Weight - Most Recent: 72.8 kg I&O - Last 24 hours: Intake & Output 0409/30/17 09/30/17 22:59 06:59 14:59 Intake Total 2620 1210 Output Total 1800 1500 Balance 824 -290 Lab Results - Last 24 hrs: Laboratory Results - last 24 hr 09/29/17 09/30/17 09/30/17 Range/Units 12:25 05:51 05:51 WBC 5.60 (4.0-11.0) K/uL RBC 3.70 L (4.30-5.90) M/uL Hgb 9.9 L (12.0-16.0) g/dL Hct 29.9 L (36.0-46.0) % MCV 80.8 (80.0-98.0) fL MCH 26.8 L (27.0-32.0) pg MCHC 33.1 (31.0-37.0) g/dL RDW Std Deviation 42.1 (28.0-62.0) fl RDW Coeff of Yue 14 (11.0-15.0) % Plt Count 247 (150-400) K/uL MPV 10.50 (7.40-12.00) fL Neut % (Auto) 60.6 (48.0-80.0) % Lymph % (Auto) 22.7 (16.0-40.0) % [place] % (Auto) 13.8 (0.0-15.0) % Eos % (Auto) 2.9 (0.0-7.0) % Baso % (Auto) 0.0 (0.0-1.5) % Neut # (Auto) 3.4 (1.4-5.7) K/uL Lymph # (Auto) 1.3 (0.6-2.4) K/uL [place] # (Auto) 0.8 (0.0-0.8) K/uL Eos # (Auto) 0.2 (0.0-0.7) K/uL Baso # (Auto) 0.0 (0.0-0.1) K/uL Nucleated RBC % 0.0 /100WBC Nucleated RBCs # 0 K/uL Sodium 139 (136-145) mmol/L Potassium 3.2 L (3.5-5.1) mmol/L Chloride 105 (98-107) mmol/L Carbon Dioxide 22.6 (21.0-32.0) mmol/L BUN 4 L (7.0-18.0) mg/dL Creatinine 0.6 (0.6-1.0) mg/dL Est Cr Clr Drug Dosing 129.05 mL/min Estimated GFR (MDRD) > 60.0 ml/min Glucose 83 (74-106) mg/dL Calcium 8.6 (8.5-10.1) mg/dL Vancomycin Trough 10.7 H (5.0-10.0) ug/mL [place] Results - Last 24 hrs: Microbiology 09/26/17 21:00 Aerobic Blood Culture - Preliminary Blood - Venous - Lab Draw NO GROWTH AFTER 3 DAYS Anaerobic Blood Culture - Preliminary NO GROWTH AFTER 3 DAYS 09/26/17 20:50 Aerobic Blood Culture - Preliminary Blood - Venous NO GROWTH AFTER 3 DAYS Anaerobic Blood Culture - Preliminary NO GROWTH AFTER 3 DAYS 09/27/17 12:55 Aerobic Blood Culture - Preliminary Blood - Venous - Lab Draw NO GROWTH AFTER 2 DAYS Anaerobic Blood Culture - Preliminary NO GROWTH AFTER 2 DAYS 09/27/17 12:43 Aerobic Blood Culture - Preliminary Blood - Venous NO GROWTH AFTER 2 DAYS Anaerobic Blood Culture - Preliminary NO GROWTH AFTER 2 DAYS Med Orders - Current: Current Medications Enoxaparin Sodium (Lovenox) 40 mg SUBCUT Q24H [facility] Last Admin: 09/29/17 20:09 Dose: 40 mg Hydromorphone HCl (Dilaudid) 1 mg IVPUSH Q2H PRN PRN Reason: Pain Last Admin: 09/30/17 03:25 Dose: 1 mg Vancomycin HCl 1 gm/ Sodium (Chloride) 250 mls @ 166 mls/hr IV Q8H [facility] Last Admin: 09/30/17 05:06 Dose: 166 mls/hr Levofloxacin/Dextrose 750 mg/ (Premix) 150 mls @ 100 mls/hr IV Q24H [facility] Last Admin: 09/29/17 11:21 Dose: 100 mls/hr Ondansetron HCl (Zofran) 4 mg IVPUSH Q4H PRN PRN Reason: Nausea/Vomiting Last Admin: 09/29/17 14:07 Dose: 4 mg Oxycodone HCl (Oxycodone) 5 mg PO Q6H PRN PRN Reason: Pain Last Admin: 09/29/17 11:21 Dose: 5 mg Vancomycin HCl (Pharmacy To Dose - Vancomycin) 1 dose .XX ASDIRECTED [facility] Discontinued Medications Acetaminophen (Tylenol Extra Strength) 1,000 mg PO ONETIME ONE Stop: 09/26/17 23:27 Last Admin: 09/26/17 23:33 Dose: 1,000 mg Acetaminophen (Tylenol) 650 mg PO Q4H PRN PRN Reason: Pain Last Admin: 09/27/17 08:20 Dose: 650 mg Diphtheria/Tetanus/Acell Pertussis (Adacel) 0.5 ml IM .ONCE ONE Stop: 09/26/17 22:18 Last Admin: 09/26/17 22:53 Dose: 0.5 ml Hydromorphone HCl (Dilaudid) 1 mg IVPUSH Q2H PRN PRN Reason: Pain Lactated Ringer's (Ringers, Lactated) 1,000 mls @ 999 mls/hr IV .BOLUS ONE Stop: 09/26/17 21:38 Last Admin: 09/26/17 21:05 Dose: 999 mls/hr Vancomycin HCl 1 gm/ Sodium (Chloride) 250 mls @ 250 mls/hr IV ONETIME ONE Stop: 09/26/17 21:54 Last Admin: 09/26/17 21:06 Dose: 250 mls/hr Lactated Ringer's (Ringers, Lactated) 1,000 mls @ 999 mls/hr IV .BOLUS ONE Stop: 09/26/17 23:07 Last Admin: 09/26/17 22:40 Dose: Not Given Sodium Chloride (Normal Saline) 1,000 mls @ 999 mls/hr IV STAT ONE Stop: 09/26/17 23:39 Last Infusion: 09/27/17 00:30 Dose: Infused Levofloxacin/Dextrose 500 mg/ (Premix) 100 mls @ 100 mls/hr IV ONETIME ONE Stop: 09/27/17 00:15 Last Infusion: 09/27/17 00:25 Dose: Infused Sodium Chloride (Normal Saline) 1,000 mls @ 125 mls/hr IV ASDIRECTED [facility] Last Admin: 09/27/17 21:08 Dose: 125 mls/hr Levofloxacin/Dextrose 750 mg/ (Premix) 150 mls @ 100 mls/hr IV ONETIME [facility] Last Admin: 09/27/17 10:20 Dose: 100 mls/hr Levofloxacin/Dextrose 750 mg/ (Premix) 150 mls @ 100 mls/hr IV Q24H [facility] Last Admin: 09/27/17 15:44 Dose: Not Given Piperacillin Sod/Tazobactam (Sod 4.5 gm/ Sodium Chloride) 100 mls @ 100 mls/hr IV Q6H [facility] Last Admin: 09/29/17 10:09 Dose: 100 mls/hr Potassium Chloride 40 meq/ (Sodium Chloride) 1,020 mls @ 125 mls/hr IV ASDIRECTED [facility] Last Admin: 09/28/17 16:17 Dose: 125 mls/hr Sodium Chloride (Normal Saline) 1,000 mls @ 125 mls/hr IV ASDIRECTED [facility] Last Admin: 09/29/17 06:42 Dose: 125 mls/hr Potassium Chloride 40 meq/ (Sodium Chloride) 1,020 mls @ 125 mls/hr IV ONETIME ONE Stop: 09/29/17 00:24 Last Admin: 09/28/17 16:17 Dose: 125 mls/hr Ibuprofen (Motrin) 800 mg PO ONETIME ONE Stop: 09/26/17 20:56 Last Admin: 09/26/17 22:39 Dose: Not Given Ibuprofen (Motrin) 800 mg PO ONETIME ONE Stop: 09/27/17 09:54 Last Admin: 09/27/17 12:17 Dose: Not Given Iopamidol (Isovue Multipack-370 (76%)) 50 ml IVPUSH ONETIME ONE Stop: 09/26/17 22:59 Last Admin: 09/26/17 22:59 Dose: 50 ml Lidocaine HCl (Xylocaine 1%) Confirm Administered Dose 20 ml .ROUTE .STK-MED ONE Stop: 09/26/17 22:10 Last Admin: 09/26/17 22:38 Dose: 20 ml Morphine Sulfate (Morphine) 5 mg IVPUSH ONETIME ONE Stop: 09/26/17 23:27 Last Admin: 09/26/17 23:34 Dose: 5 mg Ondansetron HCl (Zofran) 4 mg IVPUSH ONETIME ONE Stop: 09/26/17 20:58 Last Admin: 09/26/17 21:06 Dose: 4 mg Potassium Chloride (Klor-Con M20) 40 meq PO ONETIME ONE Stop: 09/28/17 09:43 Last Admin: 09/28/17 11:16 Dose: 40 meq Potassium Chloride (Klor-Con M20) 40 meq PO ONETIME ONE Stop: 09/30/17 08:38
[2017-09-30 12:13] VITALS: BP 114/63
[2017-09-30] MEDS: Levofloxacin/Dextrose 5%-Water 750 MG in Premix Bag 1 BAG IV SCH (12:25)
--- NOTE | 2017-10-01 09:15 | CT ---
EXAM DATE: 09/26/17 PATIENT'S AGE: 32 Patient: CINDY FERRIS Facility: [place], [place] Site . Site : 1985 Study: CT Extremity Right [id number] 5:00:37 PM Ordering Physician: Ana Cordova Final Report: HISTORY: Forearm in duration. Possible superficial thrombophlebitis. Reported negative ultrasound. TECHNIQUE: CT left arm from the mid upper arm through the wrist with IV contrast. COMPARISON: None. FINDINGS: Apparent hypodense filling defect in the basilic vein in the distal upper arm extending into an adjacent upper arm superficial branch (coronal series 203 image 37). Filling defect extends within the basilic vein distally into the forearm. Stranding of subcutaneous fat around the involved segment of vein. Extent of thrombus is difficult to discern given poor opacification of portions of the superficial venous system. Deep veins are better evaluated on ultrasound. Patchy subcutaneous edema elsewhere in the distal upper arm and in the forearm with areas of skin thickening. No discrete fluid collection. No soft tissue gas. No deep fascial fluid. No fracture. Elbow joint spaces are maintained. No erosions. Prominent epitrochlear lymph node measures 7 mm short axis. IMPRESSION: 1. Probable superficial venous thrombus involving the basilic vein from the distal upper arm into the forearm. 2. Defer to ultrasound for evaluation of the deep veins. Please note that all CT scans at this facility use dose modulation, iterative reconstruction, and/or weight-based dosing when appropriate to reduce radiation dose to as low as reasonably achievable. Dictated by Nirmal Celis MD @ Sep 28 2017 5:10PM (Electronic Signature) Report Signed by Proxy. LINCOLN
== END 2017-09-30 12:25 | disposition home or self-care (01) | DRG 602 ==
LOC: MW.ED 20:03 → MW.MS 23:27
PROVIDERS: ADMIT Internal Medicine; ATTEND Internal Medicine
PROC: 3E0234Z Introduction of Serum, Toxoid and Vaccine into Muscle, Percutaneous Approach (ICD-10-PCS; principal; 2017-09-26)
DX: L03.113 Cellulitis of right upper limb (principal); J18.1 Lobar pneumonia, unspecified organism; I80.8 Phlebitis and thrombophlebitis of other sites; R00.0 Tachycardia, unspecified; R07.9 Chest pain, unspecified; R50.9 Fever, unspecified; Z88.8 Allergy status to other drugs, medicaments and biological substances; Z23 Encounter for immunization
CPT/HCPCS: 36410; 36415; 71045; 71045-26; 71275; 71275-26; 73090-26-RT; 73090-RT; 73201-26-RT; 73201-RT; 76881-26-RT; 76881-RT; 76882; 76882-26; 80048; 80053; 80202; 80305; 81001; 81025; 83605; 85025; 85379; 87040; 90471; 90715; 93005; 96361; 96365; 96367; 96375; 99284; 99285-25; A9270-GY; J1170; J1650; J1956; J2270; J2405; J2543; J3370; J3480; J7030; J7040; J7050; J7120; Q9967

== ENCOUNTER 2019-01-04 05:57 | Emergency (ER) | payer MEDICAID, OTHER ==
[2019-01-04 06:09] VITALS: BP 96/59
[2019-01-04] MEDS ORDERED: Tetracaine HCl/PF 0.5% 4 ML Bottle ONE (06:17)
[2019-01-04] MEDS ORDERED: Tetracaine HCl/PF 0.5% 4 ML Bottle EYELF ONE (06:17)
--- NOTE | 2019-01-04 06:32 | EDM.PDOC ---
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 She says that she irrigated it and she had no pain afterwards. She had no issues with visual changes and did not seek treatment. She says that this morning she woke up and her eye was more itchy and she noticed yellow drainage from it and the entire upper eyelid was swollen. She says that she was driving to [place] this morning and that she suddenly had pain in her left eye and felt like there was something in it. She says that light is bothering her eyes now. She says that her vision is slightly blurred in that eye and she has no other systemic complaints. He doesn't recall anything specifically getting into her eyes but she says that she feels like there is something in the middle part of her eye or eyelid that is irritating her eye. Review of systems: As per history of present illness and below otherwise all systems reviewed and negative. Past medical history: As per history of present illness and as reviewed below otherwise noncontributory. Surgical history: As per history of present illness and as reviewed below otherwise noncontributory. Social history: No reported history of drug or alcohol abuse. Family history: As per history of present illness and as reviewed below otherwise noncontributory. Physical exam: General: Well-developed well-nourished female who is nontoxic and photophobic, exam. HEENT: Atraumatic, normocephalic, pupils reactive, EOMs are intact, the left eye has yellowish drainage at the punctum and some resting at the eyelashes and lid margins, the entire upper eyelid is very swollen and is difficult to flip the upper lid to see for foreign body, sclera and conjunctiva are injected on the left eye, no foreign body is definitely appreciated on inspection of the eye. Visual acuity and fluoroscein stain results are as below and the right eye is without any redness injury or soft tissue swelling, negative for conjunctival pallor or scleral icterus, mucous membranes moist, throat clear, neck supple, nontender, trachea midline. Lungs: Clear to auscultation, breath sounds equal bilaterally, chest nontender. Heart: S1S2, regular rhythm and slightly tachycardic rate of my evaluation but no overt murmurs Abdomen: Soft, nondistended, nontender. NABS Pelvis: Deferred Genitourinary: Deferred. Rectal: Deferred. Extremities: Atraumatic, negative for cords or calf pain. Neurovascular unremarkable. Neuro: Awake, alert, oriented. Cranial nerves II through XII unremarkable. Cerebellum unremarkable. Motor and sensory unremarkable throughout. Exam nonfocal. Diagnostics: Visual acuity per nursing was left eye 20/70 right eye 20/40 bilateral 20/25 PH was obtained of the left eye prior to tetracaine installation and it was 7.0 Fluoroscein stain was performed after tetracaine was instilled. There is some punctate uptake noticed diffusely across the lower portion of the corneal surface and at the 12 o'clock position at the border of the iris there is a rectangular shaped area of uptake without any gross foreign body appreciated. The procedure well and fluoroscein was irrigated Therapeutics: Tetracaine eyedrops were placed for examination Tobradex ophthalmic drops per Dr. Galvin [id number]: Case was discussed with Dr. Galvin building construction engineer and he is aware of this history and says that he would like to start the patient on Tobrex 3 times a day as well as copious artificial tears every 1-2 hours to keep the eye moist. Cool compresses to the eye and he says that this sometimes will take 48-72 hours to improve. He would like us to give the patient his information and if she is not feeling better by Sunday he would like to see her in his clinic. He is aware of my exam occluding the area of uptake that may represent a corneal abrasion and he says that the treatment would remain the same. Impression: Chemical conjunctivitis/keratitis, corneal abrasion left eye, Definitive disposition and diagnosis as appropriate pending reevaluation and review of above. Left eye Pain Score (Numeric/FACES): 7 - Related Data Allergies Allergy/AdvReac Type Severity Reaction Status Date / Time ketorolac tromethamine Allergy Severe Facial Verified 01/04/19 06:05 [From Toradol] Swelling tramadol Allergy Severe Facial Verified 01/04/19 06:05 Swelling Home Meds: Home Meds . 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 Endocrine/Metabolic History: Reports: None Other Hematologic History: Hep C positive. Immunologic History: Reports: None Oncologic (Cancer) History: Reports: None Dermatologic History: Reports: None - Infectious Disease History Infectious Disease History: Reports: Chicken Pox, Hepatitis C Social & Family History - Family History Family Medical History: Noncontributory - Caffeine Use Caffeine Use: Reports: Soda, Tea ED ROS GENERAL - Review of Systems Review Of Systems: ROS reveals no pertinent complaints other than HPI. ED EXAM GENERAL W FULL EYE - Physical Exam Exam: See Below (See dictation) Course - Vital Signs Last Recorded V/S: Last Vital Signs Temp 36.9 C 01/04/19 06:06 Pulse 102 H 01/04/19 06:06 Resp 15 01/04/19 06:06 BP 96/59 L 01/04/19 06:06 Pulse Ox 100 01/04/19 06:06 - Orders/Labs/Meds Orders: Active Orders 24 hr Category Date Time Status Dexamethasone/Tobramycin [Tobradex Ophth Susp] Med 01/04/19 14:00 Ordered 0.5 ml EYELF TID Medication Orders Tobramycin/Dexamethasone (Tobradex Ophth Susp) 0.5 ml EYELF TID DIOR Meds: Medications Generic Name Dose Route Start Last Admin Trade Name Freq PRN Reason Stop Dose Admin Tobramycin/Dexamethasone 0.5 ml 01/04/19 14:00 Tobradex Ophth Susp EYELF TID DIOR Discontinued Medications Generic Name Dose Route Start Last Admin Trade Name Freq PRN Reason Stop Dose Admin Tetracaine HCl 0.5 ml 01/04/19 06:17 01/04/19 06:21 Tetracaine 0.5% Steri-Unit Elisha EYELF 01/04/19 06:18 0.5 ml ASDIRECTED ONE Administration Tetracaine HCl Confirm 01/04/19 06:17 01/04/19 06:21 Tetracaine 0.5% Steri-Unit Elisha Administered 01/04/19 06:18 Not Given Dose 4 ml .ROUTE .STK-MED ONE Departure - Departure Time of Disposition: 06:41 Disposition: Home, Self-Care 01 Condition: Good Clinical Impression: Chemical conjunctivitis of left eye, Keratitis Corneal abrasion Qualifiers: Encounter type: initial encounter Laterality: left Qualified Code(s): S05.02XA - Injury of conjunctiva and corneal abrasion without foreign body, left eye, initial encounter - Discharge Information Referrals: PCP,None [Primary Care Provider] - Forms: ED Department Discharge Additional Instructions: The following information is given to patients seen in the emergency department who are being discharged to home. This information is to outline your options for follow-up care. We provide all patients seen in our emergency department with a follow-up referral. The need for follow-up, as well as the timing and circumstances, are variable depending upon the specifics of your emergency department visit. If you don't have a primary care physician on staff, we will provide you with a referral. We always advise you to contact your personal physician following an emergency department visit to inform them of the circumstance of the visit and for follow-up with them and/or the need for any referrals to a consulting specialist. The emergency department will also refer you to a specialist when appropriate. This referral assures that you have the opportunity for followup care with a specialist. All of these measure are taken in an effort to provide you with optimal care, which includes your followup. Under all circumstances we always encourage you to contact your private physician who remains a resource for coordinating your care. When calling for followup care, please make the office aware that this follow-up is from your recent emergency room visit. If for any reason you are refused follow-up, please contact the [facility] emergency department at and ask to speak to the emergency department charge nurse. [facility]--ophthalmology [facility] [place] [address] Please try to refrain from rubbing your eyelid and wash hands after all contact with the left eye. Use the Tobrex eyedrops you have been given 1 drop to left eye 3 times a day for the next 5 days. Please call and schedule a follow-up appointment with Dr. Galvin in the clinic on Sunday and return to ER as needed and as discussed. Please also purchase and use artificial tears which are thought [id number] and to keep the eye moist using the drops 1-2 in the left eye every 1-2 hours. - My Orders Last 24 Hours: My Active Orders 01/04/19 14:00 Dexamethasone/Tobramycin [Tobradex Ophth Susp] 0.5 ml EYELF TID - Assessment/Plan Last 24 Hours: My Active Orders 01/04/19 14:00 Dexamethasone/Tobramycin [Tobradex Ophth Susp] 0.5 ml EYELF TID
[2019-01-04] MEDS ORDERED: Dexamethasone/Tobramycin 0.1-0.3% Ophth Susp 2.5 ML Bottle ONE (06:46)
[2019-01-04] MEDS ORDERED: Dexamethasone/Tobramycin 0.1-0.3% Ophth Susp 2.5 ML Bottle EYERT SCH (07:00)
[2019-01-04] MEDS ORDERED: Dexamethasone/Tobramycin 0.1-0.3% Ophth Susp 5 ML Bottle EYELF SCH (14:00)
== END 2019-01-04 06:58 | disposition home or self-care (01) ==
LOC: MW.ED 05:57
DX: T55.1X1A Toxic effect of detergents, accidental (unintentional), initial encounter (principal); H10.212 Acute toxic conjunctivitis, left eye; S05.02XA Injury of conjunctiva and corneal abrasion without foreign body, left eye, initial encounter; H16.9 Unspecified keratitis; Z88.5 Allergy status to narcotic agent; Z88.8 Allergy status to other drugs, medicaments and biological substances
CPT/HCPCS: 99283

== ENCOUNTER 2019-05-28 17:31 | Emergency (ER) | payer SELFPAY ==
[2019-05-28 17:47] VITALS: BP 124/75; PULSE 98
--- NOTE | 2019-05-28 17:49 | EDM.PDOC ---
ED HPI GENERAL MEDICAL PROBLEM - General Chief Complaint: ENT Problem Stated Complaint: TOOTH PAIN, VOMITING Time Seen by Provider: 05/28/19 17:42 - History of Present Illness INITIAL COMMENTS - FREE TEXT/NARRATIVE: HISTORY AND PHYSICAL: History of present illness: Patient is a 33-year-old female presents with a concern of dental pain has been worse over last 2440 hrs. this is her left lower molar where she has dental care with secondary dental fracture is no fever chills patient has had some associated nausea. Review of systems: As per history of present illness and below otherwise all systems reviewed and negative. Past medical history: As per history of present illness and as reviewed below otherwise noncontributory. Surgical history: As per history of present illness and as reviewed below otherwise noncontributory. Social history: No reported history of drug or alcohol abuse. Family history: As per history of present illness and as reviewed below otherwise noncontributory. Physical exam: HEENT: Atraumatic, normocephalic, pupils reactive, negative for conjunctival pallor or scleral icterus, mucous membranes moist, throat clear, neck supple, nontender, trachea midline. Generally poor dentition noted patient has multiple dental caries including left lower molar with associated gingival edema secondary dental fracture note Lungs: Clear to auscultation, breath sounds equal bilaterally, chest nontender. Heart: S1S2, regular, negative for clicks, rubs, or JVD. Abdomen: Soft, nondistended, nontender. Negative for masses or hepatosplenomegaly. Negative for costovertebral tenderness. Pelvis: Stable nontender. Genitourinary: Deferred. Rectal: Deferred. Extremities: Atraumatic, negative for cords or calf pain. Neurovascular unremarkable. Neuro: Awake, alert, oriented. Cranial nerves II through XII unremarkable. Cerebellum unremarkable. Motor and sensory unremarkable throughout. Exam nonfocal. Diagnostics: None Therapeutics: Zofran 4 mg ODT dental balls Impression: #1 dentalgia #2 dental caries with secondary dental fracture #3 dental abscess Definitive disposition and diagnosis as appropriate pending reevaluation and review of above. - Related Data Allergies Allergy/AdvReac Type Severity Reaction Status Date / Time ketorolac tromethamine Allergy Severe Facial Verified 05/28/19 17:47 [From Toradol] Swelling tramadol Allergy Severe Facial Verified 05/28/19 17:47 Swelling Home Meds: Home Meds . 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 Endocrine/Metabolic History: Reports: None Other Hematologic History: Hep C positive. Immunologic History: Reports: None Oncologic (Cancer) History: Reports: None Dermatologic History: Reports: None - Infectious Disease History Infectious Disease History: Reports: Chicken Pox, Hepatitis C Social & Family History - Family History Family Medical History: Noncontributory - Caffeine Use Caffeine Use: Reports: Soda, Tea ED ROS GENERAL - Review of Systems Review Of Systems: Comprehensive ROS is negative, except as noted in HPI. ED EXAM, GENERAL - Physical Exam Exam: See Below (See dictation) Departure - Departure Time of Disposition: 17:48 Disposition: Home, Self-Care 01 Condition: Good Clinical Impression: Fracture of tooth, Dental abscess, Dental caries - Discharge Information Referrals: PCP,None [Primary Care Provider] - Additional Instructions: The following information is given to patients seen in the emergency department who are being discharged to home. This information is to outline your options for follow-up care. We provide all patients seen in our emergency department with a follow-up referral. The need for follow-up, as well as the timing and circumstances, are variable depending upon the specifics of your emergency department visit. If you don't have a primary care physician on staff, we will provide you with a referral. We always advise you to contact your personal physician following an emergency department visit to inform them of the circumstance of the visit and for follow-up with them and/or the need for any referrals to a consulting specialist. The emergency department will also refer you to a specialist when appropriate. This referral assures that you have the opportunity for followup care with a specialist. All of these measure are taken in an effort to provide you with optimal care, which includes your followup. Under all circumstances we always encourage you to contact your private physician who remains a resource for coordinating your care. When calling for followup care, please make the office aware that this follow-up is from your recent emergency room visit. If for any reason you are refused follow-up, please contact the [facility] emergency department at and asked to speak to the emergency department charge nurse. Zofran Augmentin as prescribed follow-up dentist return as needed as discussed
[2019-05-28] MEDS ORDERED: Benzocaine 20% Topical Spray UD MUCMEM ONE (17:50)
[2019-05-28] MEDS ORDERED: Ondansetron 4 MG Tab.DIS PO ONE (17:50)
[2019-05-28] MEDS ORDERED: Lidocaine 2% Viscous Solution 15 ML Cup PO ONE (17:50)
== END 2019-05-28 18:22 | disposition home or self-care (01) ==
LOC: MW.ED 17:31
DX: K03.81 Cracked tooth (principal); K02.9 Dental caries, unspecified; K04.7 Periapical abscess without sinus; Z88.8 Allergy status to other drugs, medicaments and biological substances
CPT/HCPCS: 99283; A9270